=== PATIENT | male | born 1945 | race Caucasian/White ===

== ENCOUNTER 2020-05-06 07:30 | Outpatient (REF) | payer MEDICARE, MEDICAID, SELFPAY ==
[2020-05-06 10:34] LABS: Alanine Aminotransferase 19 U/L (0-40); Anion Gap 16 (12-20); Blood Urea Nitrogen 19 mg/dL (9-16); Carbon Dioxide 27 mmol/L (22-29); Chloride 102 mmol/L (96-108); Potassium 4.7 mmol/L (3.3-5.1); Sodium 140 mmol/L (135-145)
[2020-05-06 12:08] LABS: Estimated Glomerular Filt Rate 57
== END 2020-05-06 07:31 | disposition home or self-care (01) ==
LOC: HO.10HDL 07:30
PROVIDERS: Visit Provider Family Medicine
DX: I10 Essential (primary) hypertension (principal); E78.00 Pure hypercholesterolemia, unspecified; Z79.899 Other long term (current) drug therapy
CPT/HCPCS: 36415; 80051; 82550; 82565; 84460; 84520

== ENCOUNTER 2020-05-18 07:12 | Outpatient (REF) | payer MEDICARE, MEDICAID, SELFPAY ==
[2020-05-18 09:42] LABS: CDIFF Ag Negative (Negative); CDiff Toxin Negative (Negative)
[2020-05-18 09:43] LABS: CDIFF Internal ctrl Dots and bkg OK (V)
== END 2020-05-18 07:13 | disposition home or self-care (01) ==
LOC: HO.LNP 07:12
PROVIDERS: Visit Provider Family Medicine
DX: I10 Essential (primary) hypertension (principal); E78.00 Pure hypercholesterolemia, unspecified; Z79.899 Other long term (current) drug therapy
CPT/HCPCS: 87324; 87449

== ENCOUNTER 2020-12-24 08:48 | Outpatient (REF) | payer MEDICARE, MEDICAID, SELFPAY ==
[2020-12-24 10:38] LABS: Anion Gap 11 (12-20); Blood Urea Nitrogen 16 mg/dL (9-16); Carbon Dioxide 27 mmol/L (22-29); Chloride 105 mmol/L (96-108); Estimated Glomerular Filt Rate 53; Potassium 4.3 mmol/L (3.3-5.1); Sodium 139 mmol/L (135-145)
== END 2020-12-24 08:49 | disposition home or self-care (01) ==
LOC: HO.10HDL 08:48
PROVIDERS: Internal Medicine; Visit Provider Family Medicine
DX: I10 Essential (primary) hypertension (principal)
CPT/HCPCS: 36415; 80051; 82565; 84520

== ENCOUNTER → 2021-03-05 07:11 | Outpatient (REF) | payer MEDICARE, MEDICAID, SELFPAY ==
--- NOTE | 2021-03-05 07:30 | CA_ITS ---
Transthoracic Echocardiogram Patient (Last, First, Middle): Dom Holland H Gender: Male Date of : 1945 Age: 76 Procedure Date: 03/05/2021 Procedure Type: Transthoracic Echocardiogram Location: OP Height: 165.1 cm Weight: 86.18 kg BSA: 1.94 m2 Heart Rate: bpm BP: 128 / 80 mmHg Backside Grinder: Referring MD: Naveen Barney MD Symptoms: NON RHEUMATIC AROTIC VALVE STENOSIS Study Quality: Fair ECG Rhythm: Sinus Conclusions: - Normal left ventricular size and systolic function. - E/E prime ratio is between 8 and 15 consistent with indeterminate filling pressures. - Normal right ventricular cavity size and systolic function. - There is moderate thickening of the aortic valve. There is mild aortic valve stenosis. Findings Left Ventricle Normal left ventricular size and systolic function. There is moderately increased left ventricular wall thickness. The visually estimated ejection fraction is between 55-60%. Diastolic function is normal for age. Spectral Doppler is indicative of an impaired relaxation filling pattern. E/E prime ratio is between 8 and 15 consistent with indeterminate filling pressures. Right Ventricle Normal right ventricular cavity size and systolic function. Atria The left atrium is normal in size. Aortic Valve There is moderate calcification of the aortic valve. There is moderate thickening of the aortic valve. There is mild aortic valve stenosis. There is trace (trivial) aortic valve regurgitation. Mitral Valve The mitral valve appears normal. There is trace mitral valve regurgitation. There is no mitral valve stenosis. Pulmonic Valve The pulmonic valve is likely normal. Tricuspid Valve Normal tricuspid valve structure and function. There is trace tricuspid valve regurgitation. Normal right atrial pressure. There is no evidence of pulmonary hypertension. Great Vessels The pulmonary artery was not well visualized. There is mild dilatation of the ascending aorta measuring 3.80 cm. Venous The inferior vena cava is normal in size and collapses greater than 50% with inspiration. Pericardium/Pleural There is no evidence of pericardial effusion. Measurements 2D Linear Measurements IVSd: 1.42 0.6-0.9/0.6-1.0 cm LVIDd: 4.13 3.9-5.3/4.2-5.9 cm LVIDd Index: 2.13 2.4-3.2/2.2-3.1 cm/m2 LVIDs: 2.72 2.0-3.6 cm LVPWd: 1.36 0.7-1.1 cm Ao Root: 3.20 2.1-3.5 cm LA Diam: 3.40 2.7-3.8/3.0-4.0 cm LAIDs Index: 1.75 1.5-2.3 cm/m2 LV Mass: 269.87 67-162/88-224 g LV Mass Index: 139.11 43-95/49-115 g/m2 LVOT Diam: 2.30 3.0+(-)1.3 cm 2D Systolic Function EF 4C: 67.30 >55% EF 2C: 51.80 >55% EF BiP: 59.00 >55% Mitral Valve MV Pk E: 0.48 MV PK A: 0.90 MV Decel Time: 158.00 E/A: 0.50 E'Lateral: 4.57 E'Medial: 4.68 E/E' Med: 10.20 E/E' Lat: 10.40 PHT: 46.00 MVA PHT: 4.78 Decel [place]: 3.01 Aortic Valve AoV Pk Raghav: 2.33 AoV Mn Raghav: 1.58 AoV VTI: 0.51 AoV Pk Grad: 22.00 Aov Mn Grad: 12.00 S[place] Cont.VTI: 1.57 LVOT LVOT Pk Raghav: 0.85 LVOT Mn Raghav: 0.52 LVOT VTI: 0.20 LVOT Pk Grad: 3.00 LVOT Mn Grad: 1.00 LVOT Diam: 2.30 LVOT Area: 4.15 Diastolic Function MV Pk E: 0.48 MV Pk A: 0.90 E/A: 0.50 E'Medial: 4.68 E/E' Med: 10.20 E' Laterial: 4.57 E/E' Lat: 10.40 Right Ventricle TAPSE (mm): 23.00 TVS' Raghav: 15.00 Tricuspid Valve TR Pk Raghav: 2.55 TR Pk Grad: 26.00 RVSP: 29.00 Great Vessels Aorta Ao Root-2D: 3.20 2.0-3.7 cm Ao Asc: 3.80 2.1-3.4 cm Pulmonary Valve PV Pk Raghav: 0.86 Peak PV Grad: 3.00 Updated in Other Vendor System with Status of Final Ruel Iqbal MD electronically signed on 03/07/2021 9:06:04 PM with status of Final
== END ==
LOC: HO.CARD 07:11
PROVIDERS: Visit Provider Family Medicine
DX: I35.1 Nonrheumatic aortic (valve) insufficiency (principal)
CPT/HCPCS: 93306

== ENCOUNTER 2021-07-21 10:29 | Outpatient (REF) | payer MEDICARE, MEDICAID, SELFPAY ==
[2021-07-21 13:12] LABS: Anion Gap 11 (12-20); Blood Urea Nitrogen 16 mg/dL (9-16); Carbon Dioxide 29 mmol/L (22-29); Chloride 103 mmol/L (96-108); Estimated Glomerular Filt Rate 57; Sodium 138 mmol/L (135-145)
== END 2021-07-21 10:30 | disposition home or self-care (01) ==
LOC: HO.10HDL 10:29
PROVIDERS: Visit Provider Family Medicine
DX: I10 Essential (primary) hypertension (principal)
CPT/HCPCS: 36415; 80051; 82565; 84520

== ENCOUNTER 2022-02-22 08:36 | Outpatient (REF) | payer MEDICARE, MEDICAID, SELFPAY ==
[2022-02-22 09:53] LABS: Alanine Aminotransferase 22 U/L (0-40); Anion Gap 15 (12-20); Aspartate Amino Transferase 22 U/L (5-37); Blood Urea Nitrogen 15 mg/dL (9-16); Carbon Dioxide 27 mmol/L (22-29); Chloride 103 mmol/L (96-108); Estimated Glomerular Filt Rate 49; Potassium 5.1 mmol/L (3.3-5.1); Sodium 140 mmol/L (135-145)
== END 2022-02-22 08:37 | disposition home or self-care (01) ==
LOC: HO.LAB 08:36
PROVIDERS: PCP Family Medicine; Visit Provider Family Medicine
DX: I10 Essential (primary) hypertension (principal); E78.00 Pure hypercholesterolemia, unspecified; Z79.899 Other long term (current) drug therapy
CPT/HCPCS: 36415; 80051; 82550; 82565; 84450; 84460; 84520

== ENCOUNTER 2022-08-17 08:39 | Outpatient (REF) | payer MEDICARE, MEDICAID, SELFPAY ==
[2022-08-17 10:22] LABS: MANUAL DIFF FLAG NO
[2022-08-17 10:35] LABS: Basophils Percent Auto 0.5 % (0-2); Eosinophils Absolute Auto 0.4 X10*3/uL (0.0-0.4); Hemoglobin 13.8 g/dl (14.0-18.0); Imm Gran Abs Auto 0.05 X10*3/uL (0.00-0.03); Imm Gran Pct Auto 0.7 % (0.0-0.4); Lymphocytes Percent Auto 27.7 % (20-40); Mean Corpuscular HGB Conc 32.9 g/dl (31.0-36.0); Mean Corpuscular Hemoglobin 29.1 pg (27.0-33.0); Mean Corpuscular Volume 88.4 fL (80.0-98.0); Monocytes Absolute Auto 0.7 X10*3/uL (0.1-1.2); Monocytes Percent Auto 10.1 % (2-11); Neutrophils Absolute Auto 4.1 x10*3/uL (2.0-8.3); Platelet Count 335 X10*3/uL (160-400); Red Blood Count 4.75 X10*6/uL (4.60-5.80); Red Cell Distribution Width 12.2 % (11.0-16.0); White Blood Count 7.4 X10*3/uL (4.8-10.8)
[2022-08-17 11:06] LABS: Alanine Aminotransferase 22 U/L (0-40); Anion Gap 15 (12-20); Blood Urea Nitrogen 15 mg/dL (9-16); Carbon Dioxide 25 mmol/L (22-29); Chloride 106 mmol/L (96-108); Estimated Glomerular Filt Rate 54; Potassium 4.8 mmol/L (3.3-5.1); Sodium 141 mmol/L (135-145)
[2022-08-17 11:26] LABS: Erythrocyte Sedimentation Rate 18 MM/HR (0-15)
== END 2022-08-17 08:40 | disposition home or self-care (01) ==
LOC: HO.10HDLR 08:39
PROVIDERS: Visit Provider Family Medicine
DX: I10 Essential (primary) hypertension (principal); E78.00 Pure hypercholesterolemia, unspecified; L30.9 Dermatitis, unspecified; Z79.899 Other long term (current) drug therapy
CPT/HCPCS: 36415; 80051; 82550; 82565; 84460; 84520; 85025; 85652

== ENCOUNTER 2022-09-06 10:46 | Outpatient (REF) | payer MEDICARE, MEDICAID, SELFPAY ==
[2022-09-06 11:54] LABS: COVID-19 Test Invalid (Negative); IDNOW Serial# 9DB6401D
== END 2022-09-06 10:47 | disposition home or self-care (01) ==
LOC: HO.LAB 10:46
PROVIDERS: PCP Family Medicine; Visit Provider Family Medicine
DX: Z20.822 Contact with and (suspected) exposure to COVID-19 (principal); R51.9 Headache, unspecified; R05.9 Cough, unspecified; B34.9 Viral infection, unspecified
CPT/HCPCS: 87635

== ENCOUNTER → 2022-09-08 12:31 | Outpatient (REF) | payer MEDICARE, MEDICAID, SELFPAY ==
--- NOTE | 2022-09-08 13:00 | CA_ITS ---
Transthoracic Echocardiogram Patient (Last, First, Middle): Dom Holland H Gender: Male Date of : 1945 Age: 77 Procedure Date: 09/08/2022 Procedure Type: Transthoracic Echocardiogram Location: OP Height: 170.18 cm Weight: 90.72 kg BSA: 2.02 m2 Heart Rate: bpm BP: 125 / 80 mmHg Birdcage Assembler: ARIANNE Referring MD: Naveen Barney MD Potato Pancake Frier: Jeyson Tejeda MD Symptoms: I49.91 Unspecified AFIB, I35.0 Nonrheumatic aortic valve stenosis Study Quality: Technically Difficult ECG Rhythm: Atrial Fibrillation with rapid ventricular respons Conclusions: - 1. Technically difficult study due to off axis views as well as rapid atrial fibrillation 2. Low normal LV systolic function with LVEF of 50-55% 3. Mild aortic stenosis 4. Normal RV systolic pressure 5. Mildly dilated ascending aorta at 4.2 cm 6. No gross pericardial effusion Findings Left Ventricle The left ventricle was not well visualized. Normal left ventricular cavity size. There is mildly increased left ventricular wall thickness. The left ventricular systolic function is low normal. The visually estimated ejection fraction is between 50-55%. Diastolic function is indeterminate on the basis of available data. There is moderate septal asymmetric hypertrophy. Right Ventricle Normal right ventricular cavity size. There is mild to moderately decreased right ventricular systolic function. Atria The left atrium is normal in size. Interatrial shunt cannot be excluded. The right atrium was not well visualized. Aortic Valve There is moderate calcification of the aortic valve. There is moderate thickening of the aortic valve. There is mild aortic valve stenosis. The peak aortic gradient is 20 mmHg.The mean gradient is 12 mmHg. The aortic valve area is 1.63 cm2. There is no aortic valve regurgitation. Mitral Valve The mitral valve was not well visualized. There is no mitral valve regurgitation. There is no mitral valve stenosis. Pulmonic Valve The pulmonic valve was not well visualized. Tricuspid Valve The tricuspid valve was not well visualized. There is mild tricuspid valve regurgitation. Tricuspid regurgitation envelope is inadequate for calculation of right ventricular systolic pressure. Normal right atrial pressure. There is no evidence of pulmonary hypertension. Great Vessels The pulmonary artery was not well visualized. There is mild dilatation of the ascending aorta measuring 4.20 cm. Venous The inferior vena cava is normal in size and collapses greater than 50% with inspiration. Pericardium/Pleural There is no evidence of pericardial effusion. Prior Study Comparison No significant change compared to prior study dated: 03/05/2021. Measurements 2D Linear Measurements IVSd: 1.85 0.6-0.9/0.6-1.0 cm LVIDd: 4.10 3.9-5.3/4.2-5.9 cm LVIDd Index: 2.03 2.4-3.2/2.2-3.1 cm/m2 LVIDs: 2.68 2.0-3.6 cm LVPWd: 1.32 0.7-1.1 cm LA Diam: 3.10 2.7-3.8/3.0-4.0 cm LAIDs Index: 1.53 1.5-2.3 cm/m2 LV Mass: 327.93 67-162/88-224 g LV Mass Index: 162.34 43-95/49-115 g/m2 LVOT Diam: 2.20 3.0+(-)1.3 cm Mitral Valve MV Pk E: 0.75 MV Decel Time: 132.00 E'Lateral: 6.09 E'Medial: 8.81 E/E' Med: 8.60 E/E' Lat: 12.40 PHT: 39.00 MVA PHT: 5.64 Decel Carbon: 5.92 Aortic Valve AoV Pk Raghav: 2.21 AoV Mn Raghav: 1.59 AoV VTI: 0.37 AoV Pk Grad: 20.00 Aov Mn Grad: 12.00 [place] Cont.VTI: 1.63 LVOT LVOT Pk Raghav: 0.94 LVOT Mn Raghav: 0.63 LVOT VTI: 0.16 LVOT Pk Grad: 4.00 LVOT Mn Grad: 2.00 LVOT Diam: 2.20 LVOT Area: 3.80 Diastolic Function MV Pk E: 0.75 E'Medial: 8.81 E/E' Med: 8.60 E' Laterial: 6.09 E/E' Lat: 12.40 Right Ventricle TAPSE (mm): 13.10 TVS' Raghav: 10.80 Tricuspid Valve TR Pk Raghav: 2.29 TR Pk Grad: 21.00 RA Press: 3.00 RVSP: 24.00 Great Vessels Aorta Sinus of Valsalva: 3.70 2.0-3.5 cm Ao Asc: 4.20 2.1-3.4 cm Pulmonary Valve PV Pk Raghav: 1.09 Peak PV Grad: 5.00 Updated in Other Vendor System with Status of Final Jeyson Tejeda MD electronically signed on 09/08/2022 3:47:20 PM with status of Final
== END ==
LOC: HO.CARD 12:31
PROVIDERS: PCP Family Medicine; Visit Provider Family Medicine
DX: I48.91 Unspecified atrial fibrillation (principal); I35.0 Nonrheumatic aortic (valve) stenosis
CPT/HCPCS: 93306

== ENCOUNTER 2022-10-18 11:21 | Outpatient (REF) | payer MEDICARE, MEDICAID, SELFPAY ==
[2022-10-18 14:15] LABS: Thyroid Stimulating Hormone 1.12 uIU/mL (0.32-4.0)
== END 2022-10-18 11:22 | disposition home or self-care (01) ==
LOC: HO.10HDL 11:21
PROVIDERS: Visit Provider Family Medicine
DX: I48.91 Unspecified atrial fibrillation (principal); I35.0 Nonrheumatic aortic (valve) stenosis; I10 Essential (primary) hypertension; I77.810 Thoracic aortic ectasia
CPT/HCPCS: 36415; 84439; 84443; 93005; 99202

== ENCOUNTER 2022-10-18 14:38 | Outpatient (AMB) | payer MEDICARE, MEDICAID, SELFPAY ==
--- NOTE | 2022-10-18 14:55 | A.OFFVIS_ITS ---
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 A recent EKG had shown atrial fibrillation hence he has been referred here. Patient himself does not have any clear-cut cardiac symptoms. No angina or shortness of breath or in fact anything cardiac sounding. He also denies any prior history of coronary disease myocardial infarction or anything along those lines. He has hypertension on medications. Also on statins. Overall, seems to be getting along fine. [facility] Medical History (Updated 10/18/22 @ 15:32 by Juan Carlos Coats MD) Ascending aorta dilatation Essential hypertension Nonrheumatic aortic (valve) stenosis Family History (Updated 10/18/22 @ 15:05 by Bethany Wing) Father Heart attack Social History (Updated 10/18/22 @ 15:06 by Bethany Wing) Alcohol intake: current Alcohol intake frequency: holidays/special occasions only Alcohol type: wine Patient Tobacco Use Status: Never used Tobacco Review of Systems Const Denies chills, Denies daytime sleepiness, Denies fatigue, Denies fever(s), Denies frequent falls, Denies night sweats, Denies snoring, Denies weakness, Denies weight gain and Denies weight loss Eyes Denies loss of vision ENT Denies dizziness and Denies hearing loss Card Denies chest pain, Denies chest pain with activity, Denies syncope, Denies rapid heart rate, Denies edema, Denies claudication, Denies leg edema, Denies lightheadedness, Denies palpitations, Denies dyspnea, Denies dyspnea on exertion and Denies orthopnea Resp Denies cough, Denies excessive phlegm production, Denies dyspnea, Denies dyspnea on exertion, Denies snoring and Denies wheezing GI Denies abdominal pain, Denies hematochezia, Denies change in bowel habits, Denies change in stool character, Denies heartburn, Denies nausea and Denies vomiting Denies hematuria, Denies dysuria and Denies urinary frequency Musc Denies arthralgias, Denies muscle weakness, Denies numbness and Denies tingling Skin/Breast Denies nail changes and Denies rash Neuro Denies Abnormal speech present, Denies dizziness, Denies syncope, Denies frequent falls, Denies loss of vision, Denies memory loss, Denies numbness, Denies tingling and Denies weakness Psych Denies depression and Denies memory loss Endo Denies fatigue and Denies palpitations Aller/Immun Denies wheezing Physical Exam Vital Signs: Last Vital Signs Pulse 88 10/18/22 15:00 BP 148/94 H 10/18/22 15:00 BMI result Body Mass Index 32.2 Const General: comfortable and no acute distress Orientation/consciousness: patient oriented x3 HEENT Other: Unremarkable Head: Yes normal to inspection Neck Neck: Yes normal visual inspection Chest Chest palpation & inspection: normal inspection of the chest Resp Auscultation: clear to auscultation bilaterally Cardio Palpation: normal PMI Heart sounds: S1 normal heart sound present, S2 normal heart sound present, no gallops, Murmur heart sound present systolic II/ and at the right sternal border and no rubs GI Palpation (GI): Soft to palpation Back/Spine/Pelvis Other: unremarkable Skin General skin exam: no rashes or lesions noted Neuro General: patient oriented x3 Speech: No Abnormal speech present Extrem General: Yes normal to inspection Psych Mental Status: mental status grossly normal Office Procedures EKG Details: EKG with atrial fibrillation at 88/Min; nonspecific ST-T changes. [id number], Complete Assessment & Plan Assessment & Plan (1) New onset atrial fibrillation: Code(s): I48.91 - Unspecified atrial fibrillation Plan: Continue beta-blockers. Continue anticoagulation. Check Holter. (2) Nonrheumatic aortic (valve) stenosis: Code(s): I35.0 - Nonrheumatic aortic (valve) stenosis Plan: In the recent echocardiogram, mean gradient across aortic valve was 12 mm Hg. Peak 20 mm Hg. Aortic valve area is 1.6 sq cm. We can monitor this periodically. (3) Essential hypertension: Code(s): I10 - Essential (primary) hypertension Plan: Slightly high. On beta-blockers/lisinopril. To be followed. May need more medications. (4) Ascending aorta dilatation: Code(s): I77.810 - Thoracic aortic ectasia Plan: Ascending aortic size 4.2 cm. Follow-up in 1 year with another echocardiogram. Plan Discussed with who came for appointment. Orders: Orders ECG 3 day holter monitor Today I48.91 - Unspecified atrial fibrillation, R00.2 - Palpitations Coding Level of Care Code New Pt Level 4 (92385) Diagnoses New onset atrial fibrillation I48.91 Nonrheumatic aortic (valve) stenosis I35.0 Essential hypertension I10 Ascending aorta dilatation I77.810 CPT Codes EKG - CPT: 64308-[id number], Complete ([id number])
[2022-10-18 15:00] VITALS: BP 148/94; PULSE 88; BMI 32.2
== END 2022-10-18 15:26 | disposition home or self-care (01) ==
PROVIDERS: PCP Family Medicine; Visit Provider Internal Medicine
DX: I48.91 Unspecified atrial fibrillation (principal); I35.0 Nonrheumatic aortic (valve) stenosis; I10 Essential (primary) hypertension; I77.810 Thoracic aortic ectasia
CPT/HCPCS: 93010; 99204

== ENCOUNTER → 2022-10-25 09:57 | Outpatient (REF) | payer MEDICARE, MEDICAID, SELFPAY ==
--- NOTE | 2022-10-25 09:59 | HM_ITS ---
Conclusion: 1. Patient was monitored for total period of 3 days 2. Baseline was atrial fibrillation with average heart of 92 beats per minute with borderline rate control 3. No significant pauses noted 4. Occasional PVCs noted 5. No patient reported events MTDD
== END ==
LOC: HO.CARD 09:57
PROVIDERS: Visit Provider Internal Medicine
DX: I48.91 Unspecified atrial fibrillation (principal); R00.2 Palpitations
CPT/HCPCS: 93242

== ENCOUNTER → 2022-10-25 09:59 | Outpatient (BNV) | payer MEDICARE, MEDICAID, SELFPAY | PROVIDERS: Visit Provider Internal Medicine Cardiovascular Disease | DX: I48.91 Unspecified atrial fibrillation (principal) | CPT/HCPCS: 93244 ==

== ENCOUNTER 2023-01-18 13:39 | Outpatient (AMB) | payer MEDICARE, MEDICAID, SELFPAY ==
[2023-01-18 13:55] VITALS: BP 130/72; PULSE 75; BMI 32.7
--- NOTE | 2023-01-18 13:55 | MHC.OFFVIS ---
Intake Vital Signs 01/18/23 13:55 Height 5 ft 7 in Weight 208 lb 15.971 oz BMI 32.7 BP 130/72 Blood Pressure Location Rt brachial Position Sitting Pulse 75 Pulse Source Pulse Oximeter Intake Visit Reasons: 2-3 mth f/up Allergies No Known Allergies [No Known Allergies*] Allergy (Verified 01/18/23 13:55) Medication List - Last Reconciled 01/18/23 by Tiarra Melo NP coenzyme Q10 100 mg PO DAILY lisinopril 20 mg PO DAILY metoprolol succinate ER 100 mg PO DAILY rivaroxaban (Xarelto) 20 mg PO DAILY simvastatin 40 mg PO DAILY trazodone 25 mg PO BEDTIME PRN HPI HPI Comments History of Present Illness Details 77-year-old male presents for a follow-up after testing. He reports doing increasingly better. Denies any chest discomfort, palpations, shortness of breath, and swelling. 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 Holter showed afib with slightly fast rates. His metoprolol succinate ER was increased from 50mg to 100mg. Reports his blood pressures are about 130 systolic at home. [facility] Medical History (Updated 01/18/23 @ 14:03 by Tiarra Melo NP) Ascending aorta dilatation Essential hypertension Nonrheumatic aortic (valve) stenosis Family History (Updated 10/18/22 @ 15:05 by Bethany Wing) Father Heart attack Social History Alcohol intake: current Alcohol intake frequency: holidays/special occasions only Alcohol type: wine Patient Tobacco Use Status: Never used Tobacco Review of Systems Const Denies chills, Denies fatigue, Denies fever(s), Denies frequent falls, Denies weakness, Denies weight gain and Denies weight loss ENT Denies dizziness Card Denies chest pain, Denies chest pain with activity, Denies syncope, Denies rapid heart rate, Denies pedal edema, Denies irregular heart rhythm, Denies leg edema, Denies lightheadedness, Denies palpitations, Denies dyspnea, Denies dyspnea on exertion, Denies orthopnea and Denies other (LOC) Resp Denies cough, Denies dyspnea and Denies dyspnea on exertion GI Denies hematochezia and Denies change in bowel habits Musc Denies abnormal gait, Denies arthralgias, Denies muscle weakness, Denies numbness, Denies radiating pain into limb and Denies tingling Neuro Denies abnormal gait, Denies dizziness, Denies syncope, Denies frequent falls, Denies numbness, Denies tingling and Denies weakness Endo Denies fatigue and Denies palpitations Physical Exam Const General: healthy appearing and no acute distress Orientation/consciousness: patient oriented x3 HEENT Head: Yes normal to inspection Eyes General: appearance normal, both eyes and all related structures Neck Neck: Yes normal visual inspection Chest Chest palpation & inspection: normal inspection of the chest Resp Effort & Inspection: normal respiratory effort Auscultation: clear to auscultation bilaterally Cardio Jugular venous distension: no JVD Palpation: normal PMI Rate: regular rate Rhythm: regular rhythm Heart sounds: S1 normal heart sound present, S2 normal heart sound present, no click, no gallops, no murmurs and no rubs GI Inspection: Yes normal to inspection Palpation (GI): Soft to palpation Skin General skin exam: no rashes or lesions noted Neuro General: patient oriented x3 Extrem General: Yes normal to inspection Psych Appearance: grossly normal Assessment & Plan Assessment & Plan (1) Atrial fibrillation: Code(s): I48.91 - Unspecified atrial fibrillation (2) Essential hypertension: Code(s): I10 - Essential (primary) hypertension Plan Report any new symptoms of chest discomfort, heart racing, palpiations, shortness of breath, or syncope. Continue all medications as prescribed. Avoiding salt and monitor blood pressures at home. Target blood pressures below 130/80. Will have him return in [address] Coats or sooner if needed. Coding Level of Care Code Est Pt Level 3 (60373) Diagnoses Atrial fibrillation I48.91 Essential hypertension I10
== END 2023-01-18 14:37 | disposition home or self-care (01) ==
PROVIDERS: PCP Family Medicine; Visit Provider Nurse Practitioner
DX: I48.91 Unspecified atrial fibrillation (principal); I10 Essential (primary) hypertension
CPT/HCPCS: 99213

== ENCOUNTER → 2023-01-18 13:39 | Outpatient (BNVA) | payer MEDICARE, MEDICAID, SELFPAY | PROVIDERS: PCP Family Medicine; Visit Provider Nurse Practitioner | DX: I48.91 Unspecified atrial fibrillation (principal); I10 Essential (primary) hypertension | CPT/HCPCS: 99212 ==

== ENCOUNTER 2023-02-07 08:18 | Outpatient (REF) | payer MEDICARE, MEDICAID, SELFPAY ==
[2023-02-07 10:22] LABS: MANUAL DIFF FLAG NO
[2023-02-07 10:32] LABS: Basophils Absolute Auto 0.1 X10*3/uL (0.0-0.2); Basophils Percent Auto 0.7 % (0-2); Eosinophils Absolute Auto 0.3 X10*3/uL (0.0-0.4); Eosinophils Percent Auto 3.4 % (0-4); Hematocrit 45.3 % (42.0-52.0); Hemoglobin 14.9 g/dl (14.0-18.0); Imm Gran Abs Auto 0.05 X10*3/uL (0.00-0.03); Imm Gran Pct Auto 0.6 % (0.0-0.4); Lymphocytes Absolute Auto 1.9 X10*3/uL (1.2-4.9); Lymphocytes Percent Auto 22.4 % (20-40); Mean Corpuscular HGB Conc 32.9 g/dl (31.0-36.0); Mean Corpuscular Hemoglobin 29.4 pg (27.0-33.0); Mean Corpuscular Volume 89.5 fL (80.0-98.0); Mean Platelet Volume 9.9 fL (9.4-12.4); Monocytes Absolute Auto 0.7 X10*3/uL (0.1-1.2); Monocytes Percent Auto 8.1 % (2-11); Neutrophils Absolute Auto 5.5 x10*3/uL (2.0-8.3); Neutrophils Percent Auto 64.8 % (45-73); Platelet Count 368 X10*3/uL (160-400); Red Blood Count 5.06 X10*6/uL (4.60-5.80); Red Cell Distribution Width 12.4 % (11.0-16.0); White Blood Count 8.5 X10*3/uL (4.8-10.8)
[2023-02-07 10:37] LABS: Anion Gap 13 (12-20); Blood Urea Nitrogen 14 mg/dL (9-16); Carbon Dioxide 27 mmol/L (22-29); Chloride 106 mmol/L (96-108); Estimated Glomerular Filt Rate 48; Potassium 4.6 mmol/L (3.3-5.1); Sodium 141 mmol/L (135-145)
== END 2023-02-07 08:19 | disposition home or self-care (01) ==
LOC: HO.10HDL 08:18
PROVIDERS: Visit Provider Family Medicine
DX: I10 Essential (primary) hypertension (principal); Z79.899 Other long term (current) drug therapy
CPT/HCPCS: 36415; 80051; 82565; 84520; 85025

== ENCOUNTER 2023-07-12 06:21 | Outpatient (REF) | payer MEDICARE, SELFPAY ==
[2023-07-12 08:14] LABS: Alanine Aminotransferase 19 U/L (0-40); Anion Gap 11 (12-20); Aspartate Amino Transferase 23 U/L (5-37); Blood Urea Nitrogen 17 mg/dL (9-16); Carbon Dioxide 28 mmol/L (22-29); Chloride 106 mmol/L (96-108); Cholesterol 242 mg/dL (<200); Estimated Glomerular Filt Rate 50; Glucose Fasting 121 mg/dL (60-99); HDL Cholesterol 39 mg/dL (>40); LDL Cholesterol Calculated 172 mg/dL (<100); Potassium 4.4 mmol/L (3.3-5.1); Sodium 141 mmol/L (135-145); Triglycerides 155 mg/dL (<150)
== END 2023-07-12 06:22 | disposition home or self-care (01) ==
LOC: HO.LAB 06:21
PROVIDERS: PCP Family Medicine; Visit Provider Family Medicine
DX: I10 Essential (primary) hypertension (principal); E78.00 Pure hypercholesterolemia, unspecified; R73.9 Hyperglycemia, unspecified; Z79.899 Other long term (current) drug therapy
CPT/HCPCS: 36415; 80051; 80061; 82550; 82565; 82947; 84450; 84460; 84520

== ENCOUNTER 2023-09-04 09:40 | Outpatient (REF) | payer MEDICARE, MEDICAID, SELFPAY ==
[2023-09-04 10:46] LABS: Estimated Average Glucose 128 mg/dL; Hemoglobin A1c % 6.1 % (<6.0)
[2023-09-04 11:02] LABS: Glucose Fasting 103 mg/dL (60-99)
[2023-09-04 11:11] LABS: Free T4 (Free Thyroxine) 0.99 ng/dL (0.71-1.85)
== END 2023-09-04 09:41 | disposition home or self-care (01) ==
LOC: HO.LAB 09:40
PROVIDERS: PCP Family Medicine; Visit Provider Family Medicine
DX: E78.00 Pure hypercholesterolemia, unspecified (principal); R00.0 Tachycardia, unspecified; R73.9 Hyperglycemia, unspecified
CPT/HCPCS: 36415; 82947; 83036; 84439

== ENCOUNTER 2023-10-17 16:49 | Inpatient (IN) | payer MEDICARE, MEDICAID, SELFPAY ==
[2023-10-17] VITALS (8 sets, daily range): BP systolic 131–172; BP diastolic 64–128; PULSE 74–141; RESP 16–42; TEMP 36.2–37.2; O2SAT 86–143; BMI 30.5
--- NOTE | ~2023-10-17 | XR_ITS ---
EXAMINATION: XR CHEST CLINICAL INFORMATION: Shortness of breath, possible edema COMPARISON: 07/19/2016 TECHNIQUE: Frontal view of the chest was obtained. FINDINGS: Heart is enlarged. Increased interstitial thickening throughout the bilateral lung parenchymal. Increased perihilar and bibasilar groundglass opacities. Small bilateral pleural effusions present. XR/XR chest 1V IMPRESSION: Cardiomegaly with increased interstitial thickening and groundglass opacities. Small bilateral pleural effusions. Findings consistent with pulmonary edema.
--- NOTE | 2023-10-17 16:54 | ECG_ITS ---
Test Reason : SOB Blood Pressure : / mmHG Vent. Rate : 126 BPM Atrial Rate : 000 BPM P-R Int : 000 ms QRS Dur : 066 ms QT Int : 296 ms P-R-T Axes : 000 023 109 degrees QTc Int : 428 ms Atrial fibrillation with rapid ventricular response Septal infarct , age undetermined Nonspecific ST and T wave abnormality Abnormal ECG No previous ECGs available Referred By: Sveta Thomas Electronically Signed By:LULY STRAUSS
--- NOTE | 2023-10-17 16:55 | ED_ITS ---
HPI - SOB/Dyspnea General Chief Complaint: Dyspnea Stated Complaint: Difficulty breathing Time Seen by Provider: 10/17/23 17:05 Source: patient and family Mode of arrival: ambulatory Limitations: no limitations History of Present Illness ED Provider: Dr. Sandy Servin HPI Narrative: To the emergency room complaining of shortness of breath for 12 days in lower extremity edema. Patient states that when he walks, he becomes very short of breath. 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 Patient states that he has atrial fibrillation, he takes Xarelto and metoprolol and he is compliant with his medications. Patient denies any chest pain. Denies syncopal episodes. Related Data Home Medications ?Medication ?Instructions ?Recorded ?Confirmed coenzyme Q10 100 mg capsule 100 mg PO DAILY 10/18/22 01/18/23 lisinopril 20 mg tablet 20 mg PO DAILY 10/18/22 01/18/23 rivaroxaban 20 mg tablet (Xarelto) 20 mg PO DAILY 10/18/22 01/18/23 trazodone 50 mg tablet 25 mg PO BEDTIME PRN 10/18/22 01/18/23 simvastatin 40 mg tablet 40 mg PO DAILY 01/18/23 01/18/23 Previous Rx's ?Medication ?Instructions ?Recorded metoprolol succinate 100 mg 100 mg PO DAILY #90 tabs 08/28/23 tablet,extended release 24 hr Allergies Allergy/AdvReac Type Severity Reaction Status Date / Time No Known Allergies Allergy Verified 10/17/23 16:55 [No Known Allergies*] Review of Systems 2 Review of Systems: Constitutional : No Weight loss, No Fever, No Chills, No Night Sweats, No Fatigue, No Malaise ENT/Mouth : No Hearing loss, No Ear Pain, No Nasal Congestion, No Sinus Pain, No Hoarseness, No sore throat, No Rhinorrhea, No Swallowing Difficulty Eyes: No Eye Pain, No Swelling, No Redness, No Foreign Body, No Discharge, No Vision Changes Cardiovascular : Denies chest pain, complaining of orthopnea, shortness of breath with exertion and lower extremity edema Respiratory : No Cough, No Sputum, No Wheezing, No Smoke Exposure, complaining of dyspnea, worse with exertion Gastrointestinal : No Nausea, No Vomiting, No Diarrhea, No Constipation, No abdominal Pain, No Hematochezia, No Melena Genitourinary : no irregular bleeding, No Dysuria, No Urinary Frequency, No Hematuria, No Urinary Incontinence, No Urgency, No Flank Pain, No Urinary Flow Changes, No Hesitancy Musculoskeletal : No joint pain, No Myalgias, No Joint Swelling Skin : No Skin Lesions, No rash Neuro : No Weakness, No Numbness, No Paresthesias, No Loss of Consciousness, No Dizziness, No Headache Psych : No Anxiety/Panic, No Depression, No SI/HI/AH/VH, No Social Issues, Heme/Lymph: No Bruising, No Bleeding,No Lymphadenopathy Endocrine : No Polyuria, No Polydipsia, No Temperature Intolerance [facility] Past Medical History Medical History Ascending aorta dilatation Essential hypertension Nonrheumatic aortic (valve) stenosis Family History Family History (Updated 10/18/22 @ 15:05 by Bethany Wing) Father Heart attack Social History Social History Alcohol intake: current Alcohol intake frequency: holidays/special occasions only Alcohol type: wine Patient Tobacco Use Status: Never used Tobacco Smoked in Last 30 Days: No Use of substances other than those prescribed or required for medical reasons: No Advance Directives: No Advance Directives Information Provided: No Do you have a plan to hurt others: No Plan Physical Exam 2 Vital Signs: Vital Signs: Last Vital Signs Temp 99 F 10/17/23 18:19 Pulse 74 10/17/23 18:19 Resp 16 10/17/23 18:19 BP 131/64 10/17/23 18:19 Pulse Ox 95 10/17/23 18:19 O2 Del Method Room Air 10/17/23 18:19 BMI result Body Mass Index 30.5 Const: Other: Appearance: Alert. Oriented X3. No acute distress. Eyes: Pupils equal, round and reactive to light. ENT: Pharynx normal. Neck: Normal inspection. Neck supple. No lymph nodes noted. No crepitus CVS: Normal heart rate and rhythm. Pulses normal. Normal S1 and S2 Respiratory: Seems short of breath, bilateral crackles, no rales, no long wheezing, patient has upper airway wheezing but not present when he talks Abdomen: Soft and nontender. No rigidity. No distention. Skin: Skin warm and dry. Normal skin color. Normal skin turgor. Extremities: +2 pitting edema in bilateral lower extremities,. No Lacerations. No Rash Neuro: Oriented X 3. No motor deficit. No sensory deficit. Moving all extremities. No slurred speech. CN 2 through 12 grossly intact Psych: calm, cooperative, normal affect Course Course Course Narrative: This is a Rapid Medical Exam performed in triage by Sveta Thomas PA-C. Full HPI, ROS and PE to be performed by primary ED provider. 78 year-old M w/ PMHx AFib on Xarelto, AV stenosis, presenting to the ED c/o worsening shortness breath x 14 days w/some wheezing and pedal edema. Denies chest pain PE:+ bilateral LE pitting edema, tachycardic in triage > suspect AFib with RVR, will be brought back immediately to main ED Plan: EKG, labs, CXR, viral testing Medications Administered Discontinued Medications Generic Name Dose Route Start Last Admin Trade Name Freq PRN Reason Stop Dose Admin Digoxin 0.25 mg 10/17/23 18:19 10/17/23 18:31 Digoxin 0.5 Mg/2 Ml Ampul IVPUSH 10/17/23 18:20 0.25 mg ONCE ONE Administration Furosemide 60 mg 10/17/23 17:16 10/17/23 17:24 Furosemide 100 Mg/10 Ml Vial IVPUSH 10/17/23 17:17 60 mg ONCE ONE Administration Protocol Metoprolol Tartrate 5 mg 10/17/23 17:16 10/17/23 17:24 Metoprolol Tartrate 5 Mg/5 Ml Vial IVPUSH 10/17/23 17:17 5 mg ONCE ONE Administration Protocol Medical Decision Making Medical Decision Making [facility] Narrative: -when patient walked from triage to his ED room, oxygen saturation dropped to 86%. Patient is not oxygen dependent. This time, on 3 L saturating 94% -interpretation of EKG: Atrial fibrillation with RVR, heart rate 126, ST segment depression or elevation, no T-wave inversion, QTC 428 -my interpretation of chest x-ray: Mild to moderate pulmonary edema, cardiomegaly -patient receiving Lasix 60 mg and metoprolol IV 5 mg -all of patient's labs and imaging pending, discussed with the patient that once the initial workup is done, he will be admitted, patient and his agree with plan -my interpretation of labs: Normal hematology, chemistry show no significant electrolyte abnormalities, troponin is negative, BNP is elevated 1537, patient does not have previous history of CHF -patient's heart rate slightly improved with metoprolol IV 5 mg, patient was given 0.25 mg of IV digoxin -patient's vitals heart rate 74, blood pressure 131 /64, respirations 16, oxygen saturation 95% on room air -I discussed the patient with SANDI Fuchs, on the medicine team, patient being admitted Differential Diagnosis Differential Diagnoses: The differential diagnosis associated with the presentation includes (CHF, viral illness) Admission/Observation Consideration of admission/observation: Escalation of care including admission/observation considered Lab Data 10/17/23 17:10 10/17/23 17:53 Labs: Lab Results 10/17/23 10/17/23 Range/Units 17:10 17:53 WBC 9.5 (4.8-10.8) X10*3/uL RBC 5.21 (4.60-5.80) X10*6/uL Hgb 15.7 (14.0-18.0) g/dl Hct 47.4 (42.0-52.0) % MCV 91.0 (80.0-98.0) fL MCH 30.1 (27.0-33.0) pg MCHC 33.1 (31.0-36.0) g/dl RDW 14.0 (11.0-16.0) % Plt Count 280 (160-400) X10*3/uL MPV 10.8 (9.4-12.4) fL Immature Gran % (Auto) 0.3 (0.0-0.4) % Neut % (Auto) 59.7 (45-73) % Lymph % (Auto) 26.2 (20-40) % [place] % (Auto) 10.7 (2-11) % Eos % (Auto) 2.6 (0-4) % Baso % (Auto) 0.5 (0-2) % Lymph # (Auto) 2.5 (1.2-4.9) X10*3/uL [place] # (Auto) 1.0 (0.1-1.2) X10*3/uL Eos # (Auto) 0.3 (0.0-0.4) X10*3/uL Baso # (Auto) 0.1 (0.0-0.2) X10*3/uL Abs Immat Gran (auto) 0.03 (0.00-0.03) X10*3/uL Absolute Neuts (auto) 5.7 (2.0-8.3) x10*3/uL Absolute Nucleated RBC 0.000 (0.0-0.012) X10*3/uL Nucleated RBC % (auto) 0.0 (0.0-0.2) /100WBC PT 16.8 H (11.1-13.3) SEC INR 1.4 H (0.9-1.1) Sodium 142 (135-145) mmol/L Potassium 4.2 (3.3-5.1) mmol/L Chloride 108 (96-108) mmol/L Carbon Dioxide 22 (22-29) mmol/L Anion Gap 16 (12-20) BUN 25 H (9-16) mg/dL Creatinine 1.38 (0.5-1.4) mg/dL Estim Creat Clear Calc 46.0 Estimated GFR 50 Random Glucose 128 H (60-115) mg/dL Calcium 9.6 (8.4-10.2) mg/dL Magnesium 2.3 (1.6-2.6) mg/dL Total Bilirubin 1.2 H (0.0-1.0) mg/dL Direct Bilirubin 0.5 (0.0-0.5) mg/dL AST 40 H (5-37) U/L ALT 44 H (0-40) U/L Alkaline Phosphatase 88 (39-117) U/L Troponin I High Sens 18.0 (<3.5-35.0) ng/L B-Natriuretic Peptide 1547 H (<100) pg/mL Total Protein 7.5 (6.5-8.0) g/dL Albumin 4.1 (3.5-5.0) g/dL Influenza Type A (PCR) NEGATIVE (Negative) Influenza Type B (PCR) NEGATIVE (Negative) RSV RNA Qual (PCR) NEGATIVE (Negative) SARS-CoV-2 RNA (RT-PCR) NEGATIVE (Negative) Independent Interpretation I performed an independent interpretation of an: Plain X-Ray Radiology Impression Discussion of test interpretation with radiology: I have reviewed the radiologist's reading. Radiologist Impression: Heart is enlarged. Increased interstitial thickening throughout the bilateral lung parenchymal. Increased perihilar and bibasilar groundglass opacities. Small bilateral pleural effusions present. XR/XR chest 1V IMPRESSION: Cardiomegaly with increased interstitial thickening and groundglass opacities. Small bilateral pleural effusions. Findings consistent with pulmonary edema. Critical Care Time Critical Care Time Critical Care Time: Yes Total Critical Care Time: 75 Attestation: I have personally provided critical care time. Time includes review of lab data, radiology results, discussion with consultants, and monitoring for potential decompensation. Intervention performed as documented. Discharge Plan Discharge Clinical Impression: Atrial fibrillation with RVR, CHF (congestive heart failure) Patient Disposition: Admitted As Inpatient Print Language: [place]se
[2023-10-17 17:16] LABS: MANUAL DIFF FLAG NO
[2023-10-17] MEDS: Metoprolol Tartrate 5 MG/5 ML VIAL IVPUSH (17:24)
[2023-10-17] MEDS: Furosemide 100 MG/10 ML VIAL 60 MG IVPUSH (17:24)
[2023-10-17 17:39] LABS: B Type Natriuretic Peptide 1547 pg/mL (<100)
[2023-10-17 17:40] LABS: Basophils Absolute Auto 0.1 X10*3/uL (0.0-0.2); Basophils Percent Auto 0.5 % (0-2); Eosinophils Absolute Auto 0.3 X10*3/uL (0.0-0.4); Eosinophils Percent Auto 2.6 % (0-4); Hematocrit 47.4 % (42.0-52.0); Hemoglobin 15.7 g/dl (14.0-18.0); Imm Gran Abs Auto 0.03 X10*3/uL (0.00-0.03); Imm Gran Pct Auto 0.3 % (0.0-0.4); Lymphocytes Absolute Auto 2.5 X10*3/uL (1.2-4.9); Lymphocytes Percent Auto 26.2 % (20-40); Mean Corpuscular HGB Conc 33.1 g/dl (31.0-36.0); Mean Corpuscular Hemoglobin 30.1 pg (27.0-33.0); Mean Platelet Volume 10.8 fL (9.4-12.4); Monocytes Percent Auto 10.7 % (2-11); Neutrophils Absolute Auto 5.7 x10*3/uL (2.0-8.3); Neutrophils Percent Auto 59.7 % (45-73); Platelet Count 280 X10*3/uL (160-400); Red Blood Count 5.21 X10*6/uL (4.60-5.80); White Blood Count 9.5 X10*3/uL (4.8-10.8)
[2023-10-17 17:46] LABS: INTERNATIONAL NORM RATIO 1.4 (0.9-1.1); Prothrombin Time 16.8 SEC (11.1-13.3)
--- NOTE | 2023-10-17 17:51 | PC.NURSE ---
patient arrives via external triage, patient complaining of shortness of breath for the last 10 days patient tachypneic in the 30s-40s, upon getting patient up and into stretcher, noted to be saturating at 86% on room air, placed on 3L nasal cannula with good effect, patient now saturating at 93%, placed on monitor and noted to be in an afib rhythm with rapid ventricular response in the 140s, 20g PIV placed in right wrist, blood work drawn and sent to lab, EKG completed, MD at bedside to evaluate, patient states his wears oxygen at home and he has been using hers occasionally, and states he has still been going into work despite being short of breath. patient is alert and oriented, audible inspiratory and expiratory wheezes, patient has pitting edema 2+ on RLE, states it has recently been more swollen than usual. denies history of COPD or CHF, states he has a hx of atrial fibrillation and is anticoagulated. MD at bedside to evaluate, patient to be medicated per MAY.
[2023-10-17 18:23] LABS: Influenza A PCR NEGATIVE (Negative); Influenza B PCR NEGATIVE (Negative); Resp Syncy Virus RNA Qual PCR NEGATIVE (Negative); SARS COV2 PCR INHOUSE NEGATIVE (Negative)
[2023-10-17] MEDS: Digoxin 0.5 MG/2 ML AMPUL 0.25 MG IVPUSH (18:31)
[2023-10-17 18:32] LABS: Alanine Aminotransferase 44 U/L (0-40); Albumin Level 4.1 g/dL (3.5-5.0); Alkaline Phosphatase 88 U/L (39-117); Anion Gap 16 (12-20); Aspartate Amino Transferase 40 U/L (5-37); Bilirubin Direct 0.5 mg/dL (0.0-0.5); Bilirubin Total 1.2 mg/dL (0.0-1.0); Blood Urea Nitrogen 25 mg/dL (9-16); Calcium 9.6 mg/dL (8.4-10.2); Carbon Dioxide 22 mmol/L (22-29); Chloride 108 mmol/L (96-108); Estimated Glomerular Filt Rate 50; Glucose Random 128 mg/dL (60-115); Magnesium 2.3 mg/dL (1.6-2.6); Potassium 4.2 mmol/L (3.3-5.1); Sodium 142 mmol/L (135-145); Total Protein 7.5 g/dL (6.5-8.0)
[2023-10-17] MEDS: Morphine Sulfate 2 MG/ML CARTRIDGE IVPUSH (18:52)
--- NOTE | 2023-10-17 19:02 | P.HPHOSP_ITS ---
History of Present Illness Date of Service: 10/17/23 Attending physician on admission: Chris [facility] Chief Complaint: sob 78-year-old male with history of hypertension, aortic stenosis, ascending aortic dilatation, paroxysmal atrial fibrillation anticoagulated with Xarelto presented to the ED earlier today for evaluation of dyspnea on exertion and generalized weakness ongoing for about 2 weeks but worsening over the last 1 week. He has also been experiencing an increase in bilateral lower extremity edema. He denies any fevers, chills, recent illness, abdominal pain, nausea, vomiting, diarrhea, dysuria, hematuria, increased urinary frequency, orthopnea, PND, lightheadedness, syncope, palpitations, chest pain. On arrival, patient found to be in atrial fibrillation with RVR with heart rates up to 140 received 5 mg IV Lopressor with mild improvement but heart rate returned to around 120. He has also been tachypneic to 40. Blood pressure stable, no hypotension. He was also noted to be hypoxic to 86% with ambulation placed on 2 L supplemental O2. He is afebrile. There is no leukocytosis or significant anemia. Renal function baseline, electrolyte levels normal. Glucose 128. Total bilirubin 1.2, AST 40, ALT 44. Troponin 18. BNP 1547. Negative for COVID-19, RSV, influenza. Chest x-ray shows cardiomegaly with increased interstitial thickening and ground-glass opacities with small bilateral pleural effusions. Findings consistent with pulmonary edema. EKG shows AFib, RVR with rate 126, no ST/depressions. In the ED, given 5 mg IV Lopressor, 60 mg of Lasix, 2 mg of morphine for increased work of breathing, and loaded with digoxin 0.25 mg. Review of Systems 2 Review of Systems: Yes all other systems are reviewed and are negative [facility] Medical History Atrial fibrillation Ascending aorta dilatation Essential hypertension Nonrheumatic aortic (valve) stenosis Family History Father Heart attack Social History Alcohol intake: current Alcohol intake frequency: holidays/special occasions only Alcohol type: wine Patient Tobacco Use Status: Never used Tobacco Smoked in Last 30 Days: No Use of substances other than those prescribed or required for medical reasons: No Advance Directives: No Advance Directives Information Provided: No Do you have a plan to hurt others: No Plan Meds Allergies Allergy/AdvReac Type Severity Reaction Status Date / Time No Known Allergies Allergy Verified 10/17/23 16:55 [No Known Allergies*] Active Medications: Current Medications Acetaminophen (Acetaminophen 325 Mg Tablet) 650 mg PO Q6H PRN PRN Reason: Pain, Mild (Pain Scale 1-3), fever or headache Calcium Carbonate (Calcium Carbonate 750 Mg Tab.Chew) 750 mg PO Q4H PRN PRN Reason: Heartburn Digoxin (Digoxin 0.5 Mg/2 Ml Ampul) 0.25 mg IVPUSH Q6H MADHU Stop: 10/18/23 06:31 Furosemide (Furosemide 40 Mg/4 Ml Vial) 40 mg IVPUSH DAILY [facility]; Protocol Magnesium Hydroxide (Milk Of Magnesia 30 Ml Oral.Susp) 30 ml PO DAILY PRN PRN Reason: Constipation Melatonin (Melatonin 3 Mg Tablet) 6 mg PO BEDTIME PRN PRN Reason: Insomnia Sodium Chloride (0.9 % Sodium Chloride Flush 3 Ml Syringe) 3 ml IVFLUSH QSHIFT [facility] Home Medications ?Medication ?Instructions ?Recorded ?Confirmed ?Last Taken ?Type coenzyme Q10 100 mg capsule 100 mg PO DAILY 10/18/22 01/18/23 Unknown History lisinopril 20 mg tablet 20 mg PO DAILY 10/18/22 01/18/23 Unknown History rivaroxaban 20 mg tablet (Xarelto) 20 mg PO DAILY 10/18/22 01/18/23 Unknown History trazodone 50 mg tablet 25 mg PO BEDTIME PRN 10/18/22 01/18/23 Unknown History simvastatin 40 mg tablet 40 mg PO DAILY 01/18/23 01/18/23 Unknown History Physical Exam 2 Vital Signs and Narrative: Vital Signs: Last Vital Signs Temp 99 F 10/17/23 18:19 Pulse 74 10/17/23 18:19 Resp 16 10/17/23 18:19 BP 131/64 10/17/23 18:19 Pulse Ox 95 10/17/23 18:19 O2 Del Method Room Air 10/17/23 18:19 BMI result Body Mass Index 30.5 Constitutional - Awake and Alert, No apparent distress Eyes - PERRLA, EOMI Cardiovascular - S1S2, irregularly irregular, tachycardic, no murmurs, 2+ BLE edema Respiratory - Normal lung expansion, mild respiratory distress with accessory muscle usage of the abdominal muscles/increased work of breathing, diminished lung sounds bilaterally Gastrointestinal - NT / ND; +BS; No rebound or guarding Extremities - no calf tenderness bilaterally, no swelling Skin - Warm/Dry Neurological - Alert & oriented x3 Psychological - Appropriate affect Results Labs 10/17/23 17:10 10/17/23 17:53 Labs: Laboratory Results - last 24 hr 10/17/23 10/17/23 17:10 17:53 MCV 91.0 MCH 30.1 MCHC 33.1 RDW 14.0 Plt Count 280 MPV 10.8 Immature Gran % (Auto) 0.3 Neut % (Auto) 59.7 Lymph % (Auto) 26.2 [place] % (Auto) 10.7 Eos % (Auto) 2.6 Baso % (Auto) 0.5 Lymph # (Auto) 2.5 [place] # (Auto) 1.0 Eos # (Auto) 0.3 Baso # (Auto) 0.1 Abs Immat Gran (auto) 0.03 Absolute Neuts (auto) 5.7 Absolute Nucleated RBC 0.000 Nucleated RBC % (auto) 0.0 PT 16.8 H INR 1.4 H Anion Gap 16 Estim Creat Clear Calc 46.0 Estimated GFR 50 Random Glucose 128 H Calcium 9.6 Magnesium 2.3 Total Bilirubin 1.2 H Direct Bilirubin 0.5 AST 40 H ALT 44 H Alkaline Phosphatase 88 Troponin I High Sens 18.0 B-Natriuretic Peptide 1547 H Total Protein 7.5 Albumin 4.1 Influenza Type A (PCR) NEGATIVE Influenza Type B (PCR) NEGATIVE RSV RNA Qual (PCR) NEGATIVE SARS-CoV-2 RNA (RT-PCR) NEGATIVE Imaging Radiologist's Impressions: Impressions Chest X-Ray 10/17/23 17:40 IMPRESSION: Cardiomegaly with increased interstitial thickening and groundglass opacities. Small bilateral pleural effusions. Findings consistent with pulmonary edema. Assessment and Plan (1) Atrial fibrillation with RVR: Status: Acute (2) CHF (congestive heart failure): Status: Acute Plan 78-year-old male with history of hypertension, aortic stenosis, ascending aortic dilatation, paroxysmal atrial fibrillation anticoagulated with Xarelto admitted for further management of atrial fibrillation with RVR and new onset congestive heart failure with respiratory distress # paroxysmal atrial fibrillation with RVR -EKG without ST/depressions -HR remains 120-130 after 5mg IV lopressor. Given new CHF, hold on diltiazem. Load with digoxin 0.25mg IV q6h x 3 doses -continue po toprol -continue Xarelto for anticoagulation -cardiac diet -cardiology consult -echocardiogram ordered -monitor on telemetry # new onset congestive heart failure with acute hypoxemic respiratory failure and respiratory distress -BNP >1500, CXR with bilateral pleural effusions and pulmonary edema -given 60 mg IV Lasix in the ED. Continue 40 mg IV Lasix daily -strict I&O -daily weights -cardiac diet -echo -IV morphine p.r.n. for increased work of breathing/distress -continue supplemental O2 to maintain oximetry greater than 92%, wean as tolerated per protocol -cardiology consult -follow renal function/lytes, trend BNP # hypertension -continue lisinopril, metoprolol # HLD -statin DVT prophylaxis-Xarelto Full code Patient requires inpatient stay at least 2 midnights for management of atrial fibrillation with RVR as well as subsequent new onset congestive heart failure requiring IV rate control/rhythm control medications and IV diuresis with close cardiac monitoring and monitoring of renal function and electrolyte levels as well as expert consultation Quality Stroke Does the patient have a stroke diagnosis?: No VTE Prior VTE?: No VTE Risk Level:: Medical - moderate - high VTE Device Contraindication: Treatment Not Indicated VTE Drug Contraindication: N/A - Med Ordered
--- NOTE | 2023-10-17 19:49 | PHA.MEDREC ---
Pharmacy Consult ? Medication Reconciliation Pharmacy has completed the medication reconciliation. Spoke to patient about medications. Patient states they are taking Xalerto 20mg tab once daily. I asked more about that since claims had it last filled at [facility] in [place] in February of 2023 and he confirmed he is still taking that medication daily and has filled since then at [facility]. I went to call the pharmacy but they were closed for the night.
[2023-10-18] VITALS (8 sets, daily range): BP systolic 117–168; BP diastolic 77–102; PULSE 79–102; RESP 16–26; TEMP 36.1–36.8; O2SAT 92–95
[2023-10-18] MEDS: Digoxin 0.5 MG/2 ML AMPUL 0.25 MG IVPUSH ×2 (00:03→07:25)
[2023-10-18] MEDS: Melatonin 3 MG TABLET 6 MG PO (00:10)
[2023-10-18 04:48] LABS: Basophils Absolute Auto 0.1 X10*3/uL (0.0-0.2); Basophils Percent Auto 0.5 % (0-2); Eosinophils Absolute Auto 0.2 X10*3/uL (0.0-0.4); Eosinophils Percent Auto 1.7 % (0-4); Hematocrit 46.2 % (42.0-52.0); Hemoglobin 15.2 g/dl (14.0-18.0); Imm Gran Abs Auto 0.06 X10*3/uL (0.00-0.03); Imm Gran Pct Auto 0.5 % (0.0-0.4); Lymphocytes Absolute Auto 1.7 X10*3/uL (1.2-4.9); Lymphocytes Percent Auto 15.2 % (20-40); MANUAL DIFF FLAG NO; Mean Corpuscular HGB Conc 32.9 g/dl (31.0-36.0); Mean Corpuscular Hemoglobin 29.7 pg (27.0-33.0); Mean Corpuscular Volume 90.4 fL (80.0-98.0); Mean Platelet Volume 10.5 fL (9.4-12.4); Monocytes Absolute Auto 1.1 X10*3/uL (0.1-1.2); Monocytes Percent Auto 9.7 % (2-11); Neutrophils Absolute Auto 8.3 x10*3/uL (2.0-8.3); Neutrophils Percent Auto 72.4 % (45-73); Platelet Count 250 X10*3/uL (160-400); Red Blood Count 5.11 X10*6/uL (4.60-5.80); Red Cell Distribution Width 13.7 % (11.0-16.0); White Blood Count 11.4 X10*3/uL (4.8-10.8)
[2023-10-18 05:07] LABS: Anion Gap 16 (12-20); Blood Urea Nitrogen 23 mg/dL (9-16); Calcium 9.8 mg/dL (8.4-10.2); Carbon Dioxide 27 mmol/L (22-29); Chloride 104 mmol/L (96-108); Estimated Glomerular Filt Rate 43; Glucose Random 102 mg/dL (60-115); Potassium 4.3 mmol/L (3.3-5.1); Sodium 143 mmol/L (135-145)
[2023-10-18 05:08] LABS: B Type Natriuretic Peptide 1695 pg/mL (<100)
--- NOTE | 2023-10-18 07:00 | CA_ITS ---
Transthoracic Echocardiogram Patient (Last, First, Middle): Dom Holland H Gender: Male Date of : 1945 Age: 78 Procedure Date: 10/18/2023 Procedure Type: Transthoracic Echocardiogram [place] [facility] [place] Height: 167.64 cm Weight: 88.45 kg BSA: 1.98 m2 Heart Rate: bpm BP: 168 / 93 mmHg Telephone Solicitor: Referring MD: Moon MCKEON Symptoms: afib rvr, new chf Study Quality: Adequate w Contrast ECG Rhythm: Atrial Fibrillation Conclusions: - The left ventricular systolic function is moderately decreased. The visually estimated ejection fraction is between 30-35%. - The left atrium is severely dilated. - Suspect paradoxical, low-flow, low gradient, moderate to severe vs early severe aortic stenosis. - There is mild dilatation of the ascending aorta measuring 4.10 cm. Findings Procedure Information Contrast agent, definity, is being given per protocol without apparent complications. Left Ventricle Normal left ventricular cavity size. There is mildly increased left ventricular wall thickness. The left ventricular systolic function is moderately decreased. The visually estimated ejection fraction is between 30 35%. There is moderate global hypokinesis. Diastolic function is normal for age. Difficult to assess wall motion even with contrast. Right Ventricle Normal right ventricular cavity size and systolic function. Atria The left atrium is severely dilated. The right atrium is normal in size. Aortic Valve The aortic valve was not well visualized. There is severe calcification of the aortic valve. The peak aortic velocity is 3.15 m/s with a calculated peak gradient of 40 mmHg. The mean gradient is 23 mmHg. The aortic valve area is 0.92 cm2. Dimensionless index 0.25. Stroke volume index 29ml/m2. Overall, could be paradoxical, low-flow, low gradient, moderate to severe vs early severe aortic stenosis. Mitral Valve The mitral valve appears normal. There is trace mitral valve regurgitation. There is no mitral valve stenosis. Pulmonic Valve The pulmonic valve is likely normal. Tricuspid Valve Normal tricuspid valve structure. There is trace tricuspid valve regurgitation. There is no evidence of pulmonary hypertension. Great Vessels There is mild dilatation of the ascending aorta measuring 4.10 cm. Venous The inferior vena cava was not well visualized. The inferior vena cava is normal in size. Pericardium/Pleural There is no evidence of pericardial effusion. Prior Study Comparison Changes noted compared to prior study dated: 09/08/2022. Progression of aortic stenosis. Decrease in LVEF. Measurements 2D Linear Measurements IVSd: 1.23 0.6-0.9/0.6-1.0 cm LVIDd: 5.21 3.9-5.3/4.2-5.9 cm LVIDd Index: 2.63 2.4-3.2/2.2-3.1 cm/m2 LVIDs: 4.09 2.0-3.6 cm LVPWd: 1.21 0.7-1.1 cm Ao Root: 3.50 2.1-3.5 cm LA Diam: 4.00 2.7-3.8/3.0-4.0 cm LAIDs Index: 2.02 1.5-2.3 cm/m2 LV Mass: 318.53 67-162/88-224 g LV Mass Index: 160.87 43-95/49-115 g/m2 LVOT Diam: 2.20 3.0+(-)1.3 cm 2D Systolic Function EF 4C: 38.40 >55% EF 2C: 22.00 >55% EF BiP: 30.70 >55% Mitral Valve MV Pk E: 0.86 MV Decel Time: 161.00 E'Lateral: 11.70 E'Medial: 7.07 E/E' Med: 12.20 E/E' Lat: 7.40 PHT: 47.00 MVA PHT: 4.68 Decel Tyrrell: 5.37 Aortic Valve AoV Pk Raghav: 3.15 AoV Mn Raghav: 2.13 AoV VTI: 0.64 AoV Pk Grad: 40.00 Aov Mn Grad: 23.00 [place] Cont.VTI: 0.92 LVOT LVOT Pk Raghav: 0.77 LVOT Mn Raghav: 0.52 LVOT VTI: 0.16 LVOT Pk Grad: 2.00 LVOT Mn Grad: 1.00 LVOT Diam: 2.20 LVOT Area: 3.80 Diastolic Function MV Pk E: 0.86 E'Medial: 7.07 E/E' Med: 12.20 E' Laterial: 11.70 E/E' Lat: 7.40 Right Ventricle TAPSE (mm): 20.00 TVS' Raghav: 10.00 Tricuspid Valve TR Pk Raghav: 2.28 TR Pk Grad: 21.00 RA Press: 3.00 Great Vessels Aorta Ao Root-2D: 3.50 2.0-3.7 cm Ao Asc: 4.10 2.1-3.4 cm Pulmonary Valve PV Pk Raghav: 0.90 Peak PV Grad: 3.00 Updated in Other Vendor System with Status of Final Juan Carlos Coats MD electronically signed on 10/18/2023 11:35:10 AM with status of Final
[2023-10-18] MEDS: 0.9 % Sodium Chloride Flush 3 ML SYRINGE IVFLUSH ×3 (07:25→20:01)
--- NOTE | 2023-10-18 08:02 | PC.NURSE ---
patient sitting up and eating breakfast, alert and oriented x3, patient afib on the monitor rate controlled low 100s. patient skin dry and intact, currently on 2l NC, medicated per MAY. respirations equal and unlabored
--- NOTE | 2023-10-18 09:28 | P.CONCA_ITS ---
History of Present Illness History of Present Illness Date of Service: 10/18/23 Chief complaint: afib rvr, new chf Narrative: This is a cardiology consultation regarding congestive heart failure. Patient is admitted for complaints of shortness of breath. We had seen him in the clinic last year. At that time, he was referred for atrial fibrillation but patient himself did not have any symptoms. He was on beta-blockers and anticoagulation. He also had mild aortic stenosis. He states that he was in fact doing fine till a couple of weeks ago. Apparently, he started feeling short of breath even with mild activity and he called our office as today. At that time, he was advised to go to the emergency room for evaluation. He was then seen in ER and admitted. Being treated for atrial fibrillation rapid rate and congestive heart failure. Today, he states that he is feeling much better. Review of Systems 2 Review of Systems: Yes all other systems are reviewed and are negative Constitutional: Constitutional: Reports as per HPI and Reports no additional constitutional complaints Eyes: Eyes: Reports as per HPI and Denies no additional eye complaints ENT: Denies system reviewed and no additional complaints, except as documented and Reports as per HPI Cardiovascular: Cardiovascular: Reports as per HPI, Reports no additional cardiovascular complaints, Denies acrocyanosis, Denies cool extremities, Denies chest pain, Denies leg edema, Denies lightheadedness, Denies palpitations and Reports dyspnea Respiratory: Respiratory: Reports as per HPI, Denies no additional respiratory complaints and Reports dyspnea Gastrointestinal: Gastrointestinal: Reports as per HPI and Denies no additional gastrointestinal complaints Genitourinary: Genitourinary: Reports no additional male genitourinary complaints and Reports as per HPI Musculoskeletal: Musculoskeletal: Reports no additional musculoskeletal complaints and Reports as per HPI Integumentary/Breasts: Skin/Breast: Reports system reviewed and no additional complaints, except as docu Neurologic: Reports system reviewed and no additional complaints, except as documented and Reports as per HPI Psychiatric: Psychiatric: Reports no additional psychiatric complaints and Reports as per HPI Endocrine: Endocrine: Reports no additional endocrine complaints, Reports as per HPI and Denies palpitations Hematologic/Lymphatic: Hematologic/Lymphatic: Reports no additional hematologic/lymphatic complaints and Reports as per HPI Allergic/Immunologic: Allergic/Immunologic: Reports no additional allergic/immunologic complaints and Reports as per HPI [facility] Past Medical History Medical History Atrial fibrillation Ascending aorta dilatation Essential hypertension Nonrheumatic aortic (valve) stenosis Family History Family History Father Heart attack Social History Social History Household Members: Spouse Housing: House Do you presently have visiting nurse or other home services: Yes ( has more information on that ) Alcohol intake: current Alcohol intake frequency: holidays/special occasions only Alcohol type: wine Patient Tobacco Use Status: Never used Tobacco Smoked in Last 30 Days: No Use of substances other than those prescribed or required for medical reasons: No Have you been hit, kicked, punched, or otherwise hurt by someone within the past year? If so, by whom?: No Do you feel safe in your current relationship?: Yes Is there a partner from a previous relationship who is making you feel unsafe now?: No Are you made to feel afraid or neglected: No Advance Directives: No Advance Directives Information Provided: No Do you have a plan to hurt others: No Plan Recently lost weight without trying: No Eating poorly because of decreased appetite: Yes Meds Allergies Allergy/AdvReac Type Severity Reaction Status Date / Time No Known Allergies Allergy Verified 10/17/23 16:55 [No Known Allergies*] Active Medications: Current Medications Acetaminophen (Acetaminophen 325 Mg Tablet) 650 mg PO Q6H PRN PRN Reason: Pain, Mild (Pain Scale 1-3), fever or headache Calcium Carbonate (Calcium Carbonate 750 Mg Tab.Chew) 750 mg PO Q4H PRN PRN Reason: Heartburn Furosemide (Furosemide 40 Mg/4 Ml Vial) 20 mg IVPUSH DAILY [facility]; Protocol Magnesium Hydroxide (Milk Of Magnesia 30 Ml Oral.Susp) 30 ml PO DAILY PRN PRN Reason: Constipation Melatonin (Melatonin 3 Mg Tablet) 6 mg PO BEDTIME PRN PRN Reason: Insomnia Last Admin: 10/18/23 00:10 Dose: 6 mg Metoprolol Succinate (Metoprolol Succinate Er 100 Mg Tab.Er.24h) 100 mg PO DAILY [facility]; Protocol Morphine Sulfate (Morphine Sulfate 2 Mg/Ml Cartridge) 2 mg IVPUSH Q4H PRN; Protocol PRN Reason: increased wob/resp distress Rivaroxaban (Rivaroxaban 20 Mg Tablet) 20 mg PO DAILY@1700 [facility] Sodium Chloride (0.9 % Sodium Chloride Flush 3 Ml Syringe) 3 ml IVFLUSH QSHIFT [facility] Last Admin: 10/18/23 07:25 Dose: 3 ml Home Medications ?Medication ?Instructions ?Recorded ?Confirmed ?Last Taken ?Type rivaroxaban 20 mg tablet (Xarelto) 20 mg PO DAILY 10/18/22 10/17/23 10/16/23 History Physical Exam 2 Vital Signs: Vital Signs: Last Vital Signs Temp 97.2 F 10/18/23 08:00 Pulse 95 10/18/23 08:00 Resp 18 10/18/23 08:00 BP 151/89 H 10/18/23 08:00 Pulse Ox 93 10/18/23 08:00 O2 Del Method Nasal Cannula 10/18/23 08:00 O2 Flow Rate 2 10/18/23 08:00 BMI result Body Mass Index 30.5 Const: General: comfortable and no acute distress O rientation/consciousness: patient oriented x3 HEENT: Other: Unremarkable Head: Yes normal to inspection Neck: Neck: Yes normal visual inspection Chest: Chest palpation & inspection: normal inspection of the chest Resp: Auscultation: clear to auscultation bilaterally Cardio: Palpation: normal PMI Heart sounds: S1 normal heart sound present, S2 normal heart sound present, no gallops, Murmur heart sound present systolic II/ and at the right sternal border and no rubs GI: Palpation (GI): Soft to palpation Back/Spine/Pelvis: Other: unremarkable Skin: General skin exam: no rashes or lesions noted Neuro: General: patient oriented x3 Extrem: General: Yes normal to inspection Psych: Mental Status: mental status grossly normal Objective Labs and Meds 10/18/23 04:42 10/18/23 04:42 Lab results: Laboratory Results - last 24 hr 10/17/23 10/17/23 10/18/23 17:10 17:53 04:42 WBC 9.5 11.4 H RBC 5.21 5.11 Hgb 15.7 15.2 Hct 47.4 46.2 MCV 91.0 90.4 MCH 30.1 29.7 MCHC 33.1 32.9 RDW 14.0 13.7 Plt Count 280 250 MPV 10.8 10.5 Immature Gran % (Auto) 0.3 0.5 H Neut % (Auto) 59.7 72.4 Lymph % (Auto) 26.2 15.2 L [place] % (Auto) 10.7 9.7 Eos % (Auto) 2.6 1.7 Baso % (Auto) 0.5 0.5 Lymph # (Auto) 2.5 1.7 [place] # (Auto) 1.0 1.1 Eos # (Auto) 0.3 0.2 Baso # (Auto) 0.1 0.1 Abs Immat Gran (auto) 0.03 0.06 H Absolute Neuts (auto) 5.7 8.3 Absolute Nucleated RBC 0.000 0.000 Nucleated RBC % (auto) 0.0 0.0 PT 16.8 H INR 1.4 H Sodium 142 143 Potassium 4.2 4.3 Chloride 108 104 Carbon Dioxide 22 27 Anion Gap 16 16 BUN 25 H 23 H Creatinine 1.38 1.55 H Estim Creat Clear Calc 46.0 41.0 Estimated GFR 50 43 Random Glucose 128 H 102 Calcium 9.6 9.8 Magnesium 2.3 Total Bilirubin 1.2 H Direct Bilirubin 0.5 AST 40 H ALT 44 H Alkaline Phosphatase 88 Troponin I High Sens 18.0 B-Natriuretic Peptide 1547 H 1695 H Total Protein 7.5 Albumin 4.1 Influenza Type A (PCR) NEGATIVE Influenza Type B (PCR) NEGATIVE RSV RNA Qual (PCR) NEGATIVE SARS-CoV-2 RNA (RT-PCR) NEGATIVE ECG Interpretation: EKG with atrial fibrillation at a rate of 126/Min; nonspecific ST-T changes; cannot exclude old septal infarct. Imaging Radiologist's impression: Impressions Chest X-Ray 10/17/23 17:40 IMPRESSION: Cardiomegaly with increased interstitial thickening and groundglass opacities. Small bilateral pleural effusions. Findings consistent with pulmonary edema. Assessment and Plan (1) Atrial fibrillation with RVR: Status: Acute At home, listed to be on metoprolol ER 100 mg daily. It appears that he got IV beta-blockers in the emergency room and also some digoxin. Currently, ventricular rate is still slightly fast. We can go up on the beta-chase dosing, especially as the blood pressure is also high. Continue with anticoagulation. (2) Acute congestive heart failure: Status: Acute IV diuretics. He states he is already feeling better. Check echocardiogram. Procedures Date of Service Date of Service: 10/18/23
[2023-10-18] MEDS: Furosemide 40 MG/4 ML VIAL 20 MG IVPUSH (11:03)
[2023-10-18] MEDS: Metoprolol Succinate ER 50 MG TAB.ER.24H 150 MG PO (11:03)
--- NOTE | 2023-10-18 11:08 | MHC.CM.PN ---
IMM 10/18/23, Pt lives with his , he is independent, no home health services or DME. He will complete HCP form here, naming his Katelyn. can transport home at DC. PCP confirmed: Naveen Barney. DCP: home with services. CM to follow and assist with DC plan.
--- NOTE | 2023-10-18 15:30 | HO.PM.IMPN ---
Subjective Subjective Date of Service: 10/18/23 Interval History: Seen in follow up for afib rvr, chf exacerbation Interval history: Feeling much better. WOB significantly improved. No lightheadedness, palpitations, chest pain. Still requiring 2L O2. NOw with bump in creat, possible overdiuresis, -3.5L since arrival. Review of Systems Review of Systems: Yes all other systems are reviewed and are negative Physical Exam Vital Signs: Vital Signs: Last Vital Signs Temp 97.0 F 10/18/23 15:10 Pulse 79 10/18/23 15:10 Resp 17 10/18/23 15:10 BP 117/77 10/18/23 15:10 Pulse Ox 92 10/18/23 15:10 O2 Del Method Nasal Cannula 10/18/23 15:10 O2 Flow Rate 2 10/18/23 15:10 BMI result Body Mass Index 30.5 Constitutional - Awake and Alert, No apparent distress Eyes - PERRLA, EOMI Cardiovascular - S1S2, RRR, 1+ ble edema Respiratory - Normal lung expansion, Normal respiratory effort, No respiratory distress, CTA bilaterally Gastrointestinal - NT / ND; +BS; No rebound or guarding Extremities - no calf tenderness bilaterally, no swelling Skin - Warm/Dry Neurological - Alert & oriented x3 Psychological - Appropriate affect Objective Data Active Medications Acetaminophen (Acetaminophen 325 Mg Tablet) 650 mg PO Q6H PRN PRN Reason: Pain, Mild (Pain Scale 1-3), fever or headache Calcium Carbonate (Calcium Carbonate 750 Mg Tab.Chew) 750 mg PO Q4H PRN PRN Reason: Heartburn Furosemide (Furosemide 40 Mg/4 Ml Vial) 20 mg IVPUSH DAILY [facility]; Protocol Last Admin: 10/18/23 11:03 Dose: 20 mg Documented By: MEME Magnesium Hydroxide (Milk Of Magnesia 30 Ml Oral.Susp) 30 ml PO DAILY PRN PRN Reason: Constipation Melatonin (Melatonin 3 Mg Tablet) 6 mg PO BEDTIME PRN PRN Reason: Insomnia Last Admin: 10/18/23 00:10 Dose: 6 mg Documented By: JERMAN Metoprolol Succinate (Metoprolol Succinate Er 50 Mg Tab.Er.24h) 150 mg PO DAILY [facility]; Protocol Last Admin: 10/18/23 11:03 Dose: 150 mg Documented By: MEME Morphine Sulfate (Morphine Sulfate 2 Mg/Ml Cartridge) 2 mg IVPUSH Q4H PRN; Protocol PRN Reason: increased wob/resp distress Rivaroxaban (Rivaroxaban 20 Mg Tablet) 20 mg PO DAILY@1700 [facility] Sodium Chloride (0.9 % Sodium Chloride Flush 3 Ml Syringe) 3 ml IVFLUSH QSHIFT [facility] Last Admin: 10/18/23 07:25 Dose: 3 ml Documented By: CHICO Labs 10/18/23 04:42 10/18/23 04:42 Labs: Laboratory Results - last 24 hr 10/17/23 10/17/23 10/18/23 17:10 17:53 04:42 MCV 91.0 90.4 MCH 30.1 29.7 MCHC 33.1 32.9 RDW 14.0 13.7 Plt Count 280 250 MPV 10.8 10.5 Immature Gran % (Auto) 0.3 0.5 H Neut % (Auto) 59.7 72.4 Lymph % (Auto) 26.2 15.2 L [place] % (Auto) 10.7 9.7 Eos % (Auto) 2.6 1.7 Baso % (Auto) 0.5 0.5 Lymph # (Auto) 2.5 1.7 [place] # (Auto) 1.0 1.1 Eos # (Auto) 0.3 0.2 Baso # (Auto) 0.1 0.1 Abs Immat Gran (auto) 0.03 0.06 H Absolute Neuts (auto) 5.7 8.3 Absolute Nucleated RBC 0.000 0.000 Nucleated RBC % (auto) 0.0 0.0 PT 16.8 H INR 1.4 H Anion Gap 16 16 Estim Creat Clear Calc 46.0 41.0 Estimated GFR 50 43 Random Glucose 128 H 102 Calcium 9.6 9.8 Magnesium 2.3 Total Bilirubin 1.2 H Direct Bilirubin 0.5 AST 40 H ALT 44 H Alkaline Phosphatase 88 Troponin I High Sens 18.0 B-Natriuretic Peptide 1547 H 1695 H Total Protein 7.5 Albumin 4.1 Influenza Type A (PCR) NEGATIVE Influenza Type B (PCR) NEGATIVE RSV RNA Qual (PCR) NEGATIVE SARS-CoV-2 RNA (RT-PCR) NEGATIVE Assessment and Plan (1) Acute congestive heart failure: Status: Acute (2) Atrial fibrillation with RVR: Status: Acute Plan 78-year-old male with history of hypertension, aortic stenosis, ascending aortic dilatation, paroxysmal atrial fibrillation anticoagulated with Xarelto admitted for further management of atrial fibrillation with RVR and new onset congestive heart failure with respiratory distress # paroxysmal atrial fibrillation with RVR -EKG without ST/depressions -HR remains 120-130 after 5mg IV lopressor and loaded with dig 0.25mg q6h x3 doses in ed/on admission -HR improved and in sinus rhythm 10/17. Increase torpol to 150mg daily per cardiology -continue Xarelto for anticoagulation -cardiac diet -cardiology input appreciated -monitor on telemetry # new onset congestive heart failure with acute hypoxemic respiratory failure and respiratory distress -BNP >1500, CXR with bilateral pleural effusions and pulmonary edema -given 60 mg IV Lasix in the ED with bump in creat to 1.55 this morning and -3.5L since arrival -Decrease lasix to 20mg IV daily -strict I&O -daily weights -cardiac diet -echo shows moderately decreased LV systolic function with EF 30-35% and severely dilated left atrium. There is also paradoxical, low-flow, low gradient, moderate to severe versus early severe aortic stenosis -IV morphine p.r.n. for increased work of breathing/distress -continue supplemental O2 to maintain oximetry greater than 92%, wean as tolerated per protocol -cardiology consult -follow renal function/lytes, trend BNP # hypertension -continue lisinopril, increase Toprol to 150 mg daily # HLD -statin DVT prophylaxis-Xarelto Full code Patient requires ongoing inpatient stay due to CHF exacerbation still with volume overload requiring IV diuresis at lower dose given increased creatinine level and will require ongoing cardiac monitoring given AFib RVR with close monitoring of renal function/electrolytes and expert consultation Quality Stroke Does the patient have a stroke diagnosis?: No VTE Prior VTE?: No VTE Risk Level:: Medical - moderate - high VTE Device Contraindication: Treatment Not Indicated VTE Drug Contraindication: N/A - Med Ordered
[2023-10-18] MEDS: Rivaroxaban 20 MG TABLET PO (19:08)
[2023-10-19] VITALS: BP 143/92; PULSE 72; RESP 20; TEMP 36.5; O2SAT 96
[2023-10-19 04:00] VITALS: BP 153/88; PULSE 88; RESP 20; TEMP 36.1; O2SAT 94
[2023-10-19 06:33] LABS: Anion Gap 13 (12-20); Blood Urea Nitrogen 21 mg/dL (9-16); Calcium 8.9 mg/dL (8.4-10.2); Carbon Dioxide 28 mmol/L (22-29); Chloride 104 mmol/L (96-108); Creatinine Clr Calc Pharmacy 53.8; Estimated Glomerular Filt Rate 60; Glucose Random 96 mg/dL (60-115); Potassium 3.6 mmol/L (3.3-5.1); Sodium 141 mmol/L (135-145)
[2023-10-19 07:25] VITALS: BP 145/97; PULSE 85; RESP 20; TEMP 36.1; O2SAT 95
[2023-10-19] MEDS: 0.9 % Sodium Chloride Flush 3 ML SYRINGE IVFLUSH (09:20)
[2023-10-19] MEDS: Metoprolol Succinate ER 50 MG TAB.ER.24H 150 MG PO (09:20)
--- NOTE | 2023-10-19 10:10 | PM.PNCARD ---
Subjective Subjective Date of Service: 10/19/23 Interval history: He states that he is feeling much better. Shortness of breath is significantly improved. Review of Systems Review of Systems Yes all other systems are reviewed and are negative Constitutional: Reports as per HPI and Reports no additional constitutional complaints Eyes: Reports as per HPI and Denies no additional eye complaints Denies system reviewed and no additional complaints, except as documented and Reports as per HPI Cardiovascular: Reports as per HPI, Reports no additional cardiovascular complaints, Denies acrocyanosis, Denies cool extremities, Denies chest pain, Denies leg edema, Denies lightheadedness, Denies palpitations and Denies dyspnea Respiratory: Reports as per HPI, Denies no additional respiratory complaints and Denies dyspnea Gastrointestinal: Reports as per HPI and Denies no additional gastrointestinal complaints Genitourinary: Reports no additional male genitourinary complaints and Reports as per HPI Musculoskeletal: Reports no additional musculoskeletal complaints and Reports as per HPI Skin/Breast: Reports system reviewed and no additional complaints, except as docu Reports system reviewed and no additional complaints, except as documented and Reports as per HPI Psychiatric: Reports no additional psychiatric complaints and Reports as per HPI Endocrine: Reports no additional endocrine complaints, Reports as per HPI and Denies palpitations Hematologic/Lymphatic: Reports no additional hematologic/lymphatic complaints and Reports as per HPI Allergic/Immunologic: Reports no additional allergic/immunologic complaints and Reports as per HPI Physical Exam Vital Signs: Last Vital Signs Temp 97.0 F 10/19/23 07:25 Pulse 85 10/19/23 07:25 Resp 20 10/19/23 07:25 BP 145/97 H 10/19/23 07:25 Pulse Ox 95 10/19/23 07:25 O2 Del Method Nasal Cannula 10/19/23 07:25 O2 Flow Rate 1 10/19/23 07:25 BMI result Body Mass Index 30.5 Const General: comfortable and no acute distress Orientation/consciousness: patient oriented x3 HEENT Other: Unremarkable Head: Yes normal to inspection Neck Neck: Yes normal visual inspection Chest Chest palpation & inspection: normal inspection of the chest Resp Auscultation: clear to auscultation bilaterally Cardio Palpation: normal PMI Heart sounds: S1 normal heart sound present, S2 normal heart sound present, no gallops, Murmur heart sound present systolic II/ and at the right sternal border and no rubs GI Palpation (GI): Soft to palpation Back/Spine/Pelvis Other: unremarkable Skin General skin exam: no rashes or lesions noted Neuro General: patient oriented x3 Extrem General: Yes normal to inspection Psych Mental Status: mental status grossly normal Objective Labs and Meds 10/18/23 04:42 10/19/23 05:32 Lab results: Laboratory Results - last 24 hr 10/19/23 05:32 Sodium 141 Potassium 3.6 Chloride 104 Carbon Dioxide 28 Anion Gap 13 BUN 21 H Creatinine 1.18 Estim Creat Clear Calc 53.8 Estimated GFR 60 Random Glucose 96 Calcium 8.9 D Progress Note: A&P Assessment and plan (1) Atrial fibrillation with RVR: Status: Acute Assessment and Plan: This seems to improved since the time of admission. Currently, in atrial fibrillation and the rate in the 80s. We have increased the beta-chase dosing. Continue that. Continue anticoagulation. We could consider cardioversion but he does have severely dilated left atrium and hence may not respond. To be decided. Of note, he also has aortic stenosis on the echocardiogram and hence there is anesthesia risk as well. (2) Acute congestive heart failure: Status: Acute Assessment and Plan: With IV diuretics, he has improved significantly. He states his breathing is much better. May switch to oral diuretics. He is already beta-blockers. Probably add Entresto and further optimize meds as an outpatient. (3) Nonrheumatic aortic (valve) stenosis: Status: Acute Assessment and Plan: In the recent echocardiogram, suspected paradoxical, low-flow, low gradient moderate to severe versus early severe aortic stenosis. Unclear how much this is contributing to the current issues. He will likely need a diagnostic catheterization in the future. (4) Ascending aorta dilatation: Status: Acute Assessment and Plan: Not significant at this time. On the echocardiogram, 4.1 cm. May be followed periodically. (5) Essential hypertension: Status: Acute Assessment and Plan: Add Entresto as above. Plan d/w Rosalia Anderson. Time Spent With Patient Time: Total time managing care of this patient today ____ minutes. Progress Note: Quality Stroke Does the patient have a stroke diagnosis?: No Procedures Date of Service Date of Service: 10/19/23
[2023-10-19 10:58] VITALS: BP 135/90; PULSE 93; RESP 20; TEMP 36.4; O2SAT 95
[2023-10-19] MEDS: Sacubitril/Valsartan 24/26 1 TAB TABLET PO (11:55)
--- NOTE | 2023-10-19 12:21 | P.DS_ITS ---
DS: Providers Provider Date of Service: 10/19/23 Date of admission: 10/17/23 18:54 Date of discharge: 10/19/23 Primary care physician: Naveen Barney MD Consults: 10/17/23 18:53 Consult to Cardiology Routine Consulting Provider: [facility] Reason for consultation: afib rvr, new chf Attending physician on discharge: William Sands Discharging clinician: Izzy Anderson DS: Diagnosis Discharge Diagnosis (1) Atrial fibrillation with RVR: Status: Acute (2) Acute congestive heart failure: Status: Acute (3) Nonrheumatic aortic (valve) stenosis: Status: Acute (4) Ascending aorta dilatation: Status: Acute (5) Essential hypertension: Status: Acute DS: Summary Hospital Course Hospital Course: From H&P on the day of admission 78-year-old male with history of hypertension, aortic stenosis, ascending aortic dilatation, paroxysmal atrial fibrillation anticoagulated with Xarelto presented to the ED earlier today for evaluation of dyspnea on exertion and generalized weakness ongoing for about 2 weeks but worsening over the last 1 week. He has also been experiencing an increase in bilateral lower extremity edema. He denies any fevers, chills, recent illness, abdominal pain, nausea, vomiting, diarrhea, dysuria, hematuria, increased urinary frequency, orthopnea, PND, lightheadedness, syncope, palpitations, chest pain. On arrival, patient found to be in atrial fibrillation with RVR with heart rates up to 140 received 5 mg IV Lopressor with mild improvement but heart rate returned to around 120. He has also been tachypneic to 40. Blood pressure stable, no hypotension. He was also noted to be hypoxic to 86% with ambulation placed on 2 L supplemental O2. He is afebrile. There is no leukocytosis or significant anemia. Renal function baseline, electrolyte levels normal. Glucose 128. Total bilirubin 1.2, AST 40, ALT 44. Troponin 18. BNP 1547. Negative for COVID-19, RSV, influenza. Chest x-ray shows cardiomegaly with increased interstitial thickening and ground-glass opacities with small bilateral pleural effusions. Findings consistent with pulmonary edema. EKG shows AFib, RVR with rate 126, no ST/depressions. In the ED, given 5 mg IV Lopressor, 60 mg of Lasix, 2 mg of morphine for increased work of breathing, and loaded with digoxin 0.25 mg. Paroxysmal atrial fibrillation with rapid ventricular response. Initially treated with IV Lopressor and loaded with digoxin emergency department. His dose of beta-chase was increased in his heart rate has improved. He was continued on Xarelto for anticoagulation. Acute respiratory failure with hypoxia due to New onset heart failure Likely exacerbated by atrial fibrillation with rapid ventricular response. Initially treated with IV Lasix, symptoms improved and he was transitioned to oral Lasix. Echocardiogram showed decrease in systolic function with EF of 30- 35%. Also moderate to severe versus early severe aortic stenosis. He was started on Entresto. Patient was able to be weaned off of supplemental oxygen and ambulate without dyspnea. He will be discharged home with oral Lasix, Entresto and increased dose of metoprolol as above. He has follow-up appointment scheduled with Cardiology on October 24. Recommend BNP 2 days prior to his appointment. Time Attestation Discharge Coordination Time (in mins): 36 Quality: Safe Use of Opioids Does Pt have an Active Cancer Diagnosis on the Problem List?: No Quality: Stroke Does the patient have a stroke diagnosis?: No Physical Exam Vital Signs: Vital Signs: Last Vital Signs Temp 97.6 F 10/19/23 10:58 Pulse 93 10/19/23 10:58 Resp 20 10/19/23 10:58 BP 135/90 H 10/19/23 10:58 Pulse Ox 95 10/19/23 10:58 O2 Del Method Room Air 10/19/23 10:58 O2 Flow Rate 1 10/19/23 07:25 BMI result Body Mass Index 30.5 Const: General: cooperative, comfortable, alert and awake Nutritional Appearance: overweight Orientation/consciousness: patient oriented x3 Resp: Effort & Inspection: normal respiratory effort, able to speak in complete sentences, no respiratory distress and no use of accessory muscles Cardio: Rate: regular rate GI: Inspection: No distended Palpation (GI): Soft to palpation Neuro: General: patient oriented x3 Extrem: General: Yes no pedal edema DS: Data Data Completed and Pending Labs on day of discharge: Laboratory Results - last 24 hr 10/19/23 05:32 Sodium 141 Potassium 3.6 Chloride 104 Carbon Dioxide 28 Anion Gap 13 BUN 21 H Creatinine 1.18 Estim Creat Clear Calc 53.8 Estimated GFR 60 Random Glucose 96 Calcium 8.9 D Discharge Plan Discharge Anticipated Discharge Date/Time: 10/19/23 12:29 Patient Disposition: Home, Self-Care Discharge Diagnosis: Atrial fibrillation with rapid ventricular response CHF aortic stenosis Referrals: Naveen Barney MD [Primary Care Provider] - 1 Week Juan Carlos Coats MD [Physician] - 1 Week Discharge Medications: New metoprolol succinate 50 mg Tablet Extended Release 24 Hr 150 mg PO DAILY 90 Days Qty: 270 0RF Protocol: Hold for SBP/HR < HOLD for SBP < : 90 HOLD for HR < : 60 Entresto 24-26 mg Tablet 1 tab PO BID 90 Days Qty: 180 0RF Protocol: Hold for SBP< HOLD for SBP < : 90 furosemide 20 mg Tablet 20 mg PO DAILY 90 Days Qty: 90 0RF Protocol: Hold for SBP< HOLD for SBP < : 90 Continued Xarelto 20 mg tablet 20 mg PO DAILY Rx Instructions: must administer with evening meal Discontinued metoprolol succinate 100 mg tablet extended release 24 hr 100 mg PO DAILY Qty: 90 0RF Rx Instructions: MUST SCHEDULE FOLLOW-UP APPT FOR REFILLS Discharge Orders: Discharge Order (Routine); Ordered 10/19/23 Ordered By: Izzy Anderson Diet: Low salt diet Activity on Discharge: As tolerated Stand Alone Forms: Patient Portal Discharge page Print Language: Surinamese Other Ambulatory Orders: Basic Metabolic Panel (Routine) Timeframe: 20231023 Facility: [facility] - Location: Laboratory Ordered By: Izzy Anderson Care Plan Goals: See below Health Concerns: Atrial fibrillation with rapid ventricular response Acute respiratory failure due to acute CHF Aortic stenosis Plan of Treatment: Your dose of metoprolol was increased to 150 mg daily for better heart rate control You have been started on new medication for your heart called Entresto You have been started on a diuretic called Lasix. monitor your weight daily, follow low salt diet. You have a follow-up appointment scheduled with Cardiology on October 24. Please have lab work done prior to appointment Assessment: See discharge summary
--- NOTE | 2023-10-19 12:43 | MHC.CM.PN ---
Pt was medically cleared for DC, he will go home via private transport, plan is self care.
== END 2023-10-19 14:00 | disposition home or self-care (01) | DRG 293 ==
LOC: HO.ED 18:01 → HO.EDOVER 19:18 → HO.IMC 10-18 07:30
PROVIDERS: Physician Assistant; Admitting Provider Physician Assistant; Emergency Provider Emergency Medicine; PCP Family Medicine; Visit Provider Physician Assistant Medical
DX: I11.0 Hypertensive heart disease with heart failure (principal); I48.0 Paroxysmal atrial fibrillation; I50.9 Heart failure, unspecified; E78.5 Hyperlipidemia, unspecified; I35.0 Nonrheumatic aortic (valve) stenosis; I77.819 Aortic ectasia, unspecified site; Z20.822 Contact with and (suspected) exposure to COVID-19; Z79.01 Long term (current) use of anticoagulants; Z79.899 Other long term (current) drug therapy
CPT/HCPCS: 0241U; 36415; 71045; 80048; 80076; 83735; 83880; 84484; 85025; 85610; 93005; 93306; 99285; J1160; J1940; J2270; Q9957

== ENCOUNTER 2023-10-17 18:54 | Outpatient (BNV) | payer MEDICARE, MEDICAID, SELFPAY | END 2023-10-18 07:00 | PROVIDERS: Admitting Provider Physician Assistant; Emergency Provider Emergency Medicine; PCP Family Medicine; Visit Provider Internal Medicine | DX: I35.0 Nonrheumatic aortic (valve) stenosis (principal); I35.8 Other nonrheumatic aortic valve disorders | CPT/HCPCS: 93306 ==

== ENCOUNTER → 2023-10-17 18:54 | Outpatient (BNV) | payer MEDICARE, MEDICAID, SELFPAY | PROVIDERS: Admitting Provider Physician Assistant; Emergency Provider Emergency Medicine; PCP Family Medicine; Visit Provider Internal Medicine | DX: I48.91 Unspecified atrial fibrillation (principal); I50.9 Heart failure, unspecified | CPT/HCPCS: 93010; 99223; 99233 ==

== ENCOUNTER → 2023-10-17 18:54 | Outpatient (BNV) | payer MEDICARE, MEDICAID, SELFPAY | PROVIDERS: Admitting Provider Physician Assistant; Emergency Provider Emergency Medicine; PCP Family Medicine; Visit Provider Physician Assistant | DX: I48.91 Unspecified atrial fibrillation (principal); I50.9 Heart failure, unspecified; I35.0 Nonrheumatic aortic (valve) stenosis; I77.810 Thoracic aortic ectasia; I10 Essential (primary) hypertension | CPT/HCPCS: 99223; 99232; 99239 ==

== ENCOUNTER 2023-10-25 09:09 | Outpatient (AMB) | payer MEDICARE, MEDICAID, SELFPAY ==
[2023-10-25 09:46] VITALS: BP 124/60; PULSE 68; BMI 30.4
--- NOTE | 2023-10-25 09:46 | A.OFFVIS_ITS ---
Vital Signs 10/25/23 09:46 Height 5 ft 7 in Weight 194 lb 0.108 oz BMI 30.4 BP 124/60 Blood Pressure Location Lt brachial Position Sitting Pulse 68 Pulse Source Pulse Oximeter Intake Visit Reasons: 6 mth f/up Allergies No Known Allergies [No Known Allergies*] Allergy (Verified 10/17/23 16:55) Medication List - Last Reconciled 10/25/23 by Juan Carlos Coats MD furosemide 20 mg See Protocol PO DAILY 90 days metoprolol succinate ER 150 mg See Protocol PO DAILY 90 days rivaroxaban (Xarelto) 20 mg PO DAILY sacubitril-valsartan 24-26 mg (Entresto) 1 tab See Protocol PO BID 90 days HPI Comments Details: Dom returns for follow-up after recent hospitalization. He was admitted with atrial fibrillation rapid rate and congestive heart failure. He was diuresed. Beta-chase dose was increased. Subsequently, discharged home. He was originally seen about a year ago for atrial fibrillation. He did not have any symptoms and the rate was well controlled and he was left on beta- blockers and anticoagulation. However, he states his symptoms started about 2 weeks or so prior to admission. Currently, he states he is back to his normal self. Echocardiogram during hospitalization showed evidence of LV dysfunction as well as paradoxical, low-flow, low gradient aortic stenosis. [facility] Medical History Atrial fibrillation Ascending aorta dilatation Essential hypertension Nonrheumatic aortic (valve) stenosis Family History Father Heart attack Social History Household Members: Spouse Housing: House Do you presently have visiting nurse or other home services: Yes ( has more information on that ) Alcohol intake: current Alcohol intake frequency: holidays/special occasions only Alcohol type: wine Patient Tobacco Use Status: Never used Tobacco service: No Review of Systems Const Denies weakness ENT Denies dizziness Card Denies chest pain, Denies chest pain with activity, Denies syncope, Denies rapid heart rate, Denies pedal edema, Denies edema, Denies leg edema, Denies lightheadedness, Denies palpitations, Denies dyspnea, Denies dyspnea on exertion and Denies orthopnea Resp Denies cough, Denies dyspnea and Denies dyspnea on exertion GI Denies hematochezia and Denies change in stool character Musc Denies abnormal gait, Denies muscle cramps, Denies muscle weakness, Denies numbness, Denies radiating pain into limb and Denies tingling Neuro Denies abnormal gait, Denies dizziness, Denies syncope, Denies numbness, Denies tingling and Denies weakness Endo Denies palpitations Physical Exam Vital Signs: Last Vital Signs Pulse 68 10/25/23 09:46 BP 124/60 10/25/23 09:46 BMI result Body Mass Index 30.4 Const General: comfortable and no acute distress Orientation/consciousness: patient oriented x3 HEENT Other: Unremarkable Head: Yes normal to inspection Neck Neck: Yes normal visual inspection Chest Chest palpation & inspection: normal inspection of the chest Resp Auscultation: clear to auscultation bilaterally Cardio Palpation: normal PMI Heart sounds: S1 normal heart sound present, S2 abnormal (soft), no gallops, Murmur heart sound present systolic III/ and at the right sternal border and no rubs GI Palpation (GI): Soft to palpation Back/Spine/Pelvis Other: unremarkable Skin General skin exam: no rashes or lesions noted Neuro General: patient oriented x3 Extrem General: Yes normal to inspection Psych Mental Status: mental status grossly normal Assessment & Plan Assessment & Plan (1) Persistent atrial fibrillation: Code(s): I48.19 - Other persistent atrial fibrillation Category: Medical Plan: Continue high dose of beta-blockers. Check Holter monitor. Continue anticoagulation. In the echocardiogram, severely dilated left atrium. Hence may not stay in sinus even if cardioverted. Also there is Anesthesia risk with severe aortic stenosis and cardiomyopathy. (2) Nonrheumatic aortic (valve) stenosis: Code(s): I35.0 - Nonrheumatic aortic (valve) stenosis Category: Medical Plan: In the echocardiogram, mean gradient across aortic valve was 23 mm Hg with a calculated valve area of 0.9 sq cm. Reduced stroke volume index. Dimensionless index 0.25. Suspected paradoxical, low-flow, low gradient moderate to severe versus severe aortic stenosis. Due to recent heart failure hospitalization, we will proceed with further evaluation. Diagnostic cardiac catheterization and possible TAVR valve after that. Discussed with patient as well as and they agree. We will schedule this. (3) Essential hypertension: Code(s): I10 - Essential (primary) hypertension Category: Medical Plan: Stable. (4) Ascending aorta dilatation: Code(s): I77.810 - Thoracic aortic ectasia Category: Medical Plan: Ascending aortic size 4.1 cm. No clinical significance at this time but will need to be followed. Plan Discussed with who came for appointment. Orders: Orders ECG 3 day holter monitor Today I48.19 - Other persistent atrial fibrillation Cardiac Cath LT Diagnostic Today I35.0 - Nonrheumatic aortic (valve) stenosis Complete Blood Count no Diff Today I35.0 - Nonrheumatic aortic (valve) stenosis Prothrombin Time INR Today I35.0 - Nonrheumatic aortic (valve) stenosis Basic Metabolic Panel Today I35.0 - Nonrheumatic aortic (valve) stenosis Coding Level of Care Code Est Pt Level 4 (92386) Diagnoses Persistent atrial fibrillation I48.19 Nonrheumatic aortic (valve) stenosis I35.0 Essential hypertension I10 Ascending aorta dilatation I77.810
== END 2023-10-25 10:29 | disposition home or self-care (01) ==
PROVIDERS: PCP Family Medicine; Visit Provider Internal Medicine
DX: I48.19 Other persistent atrial fibrillation (principal); I35.0 Nonrheumatic aortic (valve) stenosis; I10 Essential (primary) hypertension; I77.810 Thoracic aortic ectasia
CPT/HCPCS: 99214

== ENCOUNTER 2023-10-25 09:09 | Outpatient (REF) | payer MEDICARE, MEDICAID, SELFPAY ==
[2023-10-25 11:11] LABS: Hematocrit 52.3 % (42.0-52.0); Mean Corpuscular HGB Conc 32.5 g/dl (31.0-36.0); Mean Corpuscular Hemoglobin 30.1 pg (27.0-33.0); Mean Corpuscular Volume 92.7 fL (80.0-98.0); Mean Platelet Volume 10.4 fL (9.4-12.4); Platelet Count 287 X10*3/uL (160-400); Red Blood Count 5.64 X10*6/uL (4.60-5.80); Red Cell Distribution Width 13.5 % (11.0-16.0)
[2023-10-25 11:16] LABS: INTERNATIONAL NORM RATIO 1.3 (0.9-1.1); Prothrombin Time 15.6 SEC (11.1-13.3)
[2023-10-25 11:57] LABS: Anion Gap 13 (12-20); Blood Urea Nitrogen 15 mg/dL (9-16); Calcium 9.9 mg/dL (8.4-10.2); Carbon Dioxide 30 mmol/L (22-29); Chloride 101 mmol/L (96-108); Estimated Glomerular Filt Rate 51; Glucose Random 109 mg/dL (60-115); Potassium 5.7 mmol/L (3.3-5.1); Sodium 138 mmol/L (135-145)
== END 2023-10-25 09:10 | disposition home or self-care (01) ==
LOC: HO.LAB 09:09
PROVIDERS: PCP Family Medicine; Visit Provider Internal Medicine
DX: I48.19 Other persistent atrial fibrillation (principal); I35.0 Nonrheumatic aortic (valve) stenosis; I10 Essential (primary) hypertension; I77.810 Thoracic aortic ectasia
CPT/HCPCS: 36415; 80048; 85027; 85610; 99212

== ENCOUNTER → 2023-10-31 11:09 | Outpatient (REF) | payer MEDICARE, MEDICAID, SELFPAY ==
--- NOTE | 2023-10-31 11:12 | HM_ITS ---
Conclusion: 1. Patient was monitored for total period of 2 days and 23 hours 2. Baseline was atrial flutter/fibrillation with average heart rate of 83 beats per minute with overall adequate rate control 3. Occasional PVCs noted with for 3 beat salvos of nonsustained VT at 148 beats per minute 4. No patient reported events MTDD
== END ==
LOC: HO.CARD 11:09
PROVIDERS: PCP Family Medicine; Visit Provider Internal Medicine
DX: I48.19 Other persistent atrial fibrillation (principal)
CPT/HCPCS: 93242

== ENCOUNTER → 2023-10-31 11:12 | Outpatient (BNV) | payer MEDICARE, MEDICAID, SELFPAY | PROVIDERS: PCP Family Medicine; Visit Provider Internal Medicine Cardiovascular Disease | DX: I48.91 Unspecified atrial fibrillation (principal); I48.92 Unspecified atrial flutter | CPT/HCPCS: 93244 ==

== ENCOUNTER → 2023-11-09 23:59 | Outpatient (BNV) | payer MEDICARE, MEDICAID, SELFPAY | PROVIDERS: PCP Family Medicine; Visit Provider Internal Medicine Cardiovascular Disease | DX: R93.1 Abnormal findings on diagnostic imaging of heart and coronary circulation (principal) | CPT/HCPCS: 93460; 99152 ==

== ENCOUNTER 2023-11-16 08:28 | Outpatient (AMB) | payer MEDICARE, MEDICAID, SELFPAY ==
--- NOTE | 2023-11-16 08:35 | MHC.OFFVIS ---
Vital Signs 11/16/23 08:38 Height 5 ft 7 in Weight 194 lb 0.108 oz BMI 30.4 BP 114/80 Blood Pressure Location Lt brachial Position Sitting Pulse 73 Pulse Source Pulse Oximeter Intake Visit Reasons: 2 wk s/p cath HS /dc only Emt I/85 Required: No Accompanied by: Spouse Allergies No Known Allergies [No Known Allergies*] Allergy (Verified 10/17/23 16:55) Medication List - Last Reconciled 11/16/23 by Juan Carlos Coats MD aspirin (Adult Aspirin Regimen) 81 mg PO DAILY atorvastatin 80 mg PO QPM furosemide 20 mg See Protocol PO DAILY 90 days metoprolol succinate ER 150 mg See Protocol PO DAILY 90 days rivaroxaban (Xarelto) 20 mg PO DAILY sacubitril-valsartan 24-26 mg (Entresto) 1 tab See Protocol PO BID 90 days HPI Comments Details: Dom returns for follow-up after recent hospitalization. He was admitted with atrial fibrillation rapid rate and congestive heart failure. He was diuresed. Beta-chase dose was increased. Subsequently, discharged home. He was originally seen about a year ago for atrial fibrillation. He did not have any symptoms and the rate was well controlled and he was left on beta-blockers and anticoagulation. However, he states his symptoms started about 2 weeks or so prior to admission. Currently, he states he is back to his normal self. Echocardiogram during hospitalization showed evidence of LV dysfunction as well as paradoxical, low-flow, low gradient aortic stenosis. Following this, he underwent cardiac catheterization that showed significant multivessel disease. Was advised bypass surgery with aortic valve replacement as an inpatient but decided to sign himself out. Today, he states he feels fine. No cardiac symptoms. [facility] Medical History (Updated 11/16/23 @ 08:45 by Juan Carlos Coats MD) Atherosclerotic cardiovascular disease Atrial fibrillation Ascending aorta dilatation Essential hypertension Nonrheumatic aortic (valve) stenosis Family History Father Heart attack Social History Household Members: Spouse Housing: House Do you presently have visiting nurse or other home services: Yes ( has more information on that ) Alcohol intake: current Alcohol intake frequency: holidays/special occasions only Alcohol type: wine Patient Tobacco Use Status: Never used Tobacco service: No Review of Systems Const Denies chills, Denies fatigue, Denies fever(s), Denies weight gain and Denies weight loss ENT Denies dizziness Card Denies chest pain, Denies leg edema, Denies lightheadedness, Denies palpitations, Denies dyspnea on exertion, Denies orthopnea and Denies other Resp Denies cough and Denies dyspnea on exertion GI Denies hematochezia and Denies change in stool character Musc Denies abnormal gait, Denies muscle weakness, Denies numbness, Denies radiating pain into limb and Denies tingling Neuro Denies abnormal gait, Denies dizziness, Denies numbness and Denies tingling Endo Denies fatigue and Denies palpitations Physical Exam Vital Signs: Last Vital Signs Pulse 73 11/16/23 08:38 BP 114/80 11/16/23 08:38 BMI result Body Mass Index 30.4 Const General: comfortable and no acute distress Orientation/consciousness: patient oriented x3 HEENT Other: Unremarkable Head: Yes normal to inspection Neck Neck: Yes normal visual inspection Chest Chest palpation & inspection: normal inspection of the chest Resp Auscultation: clear to auscultation bilaterally Cardio Palpation: normal PMI Heart sounds: S1 normal heart sound present, S2 abnormal (soft), no gallops, Murmur heart sound present systolic III/ and at the right sternal border and no rubs GI Palpation (GI): Soft to palpation Back/Spine/Pelvis Other: unremarkable Skin General skin exam: no rashes or lesions noted Neuro General: patient oriented x3 Extrem General: Yes normal to inspection Psych Mental Status: mental status grossly normal Assessment & Plan Assessment & Plan (1) Atherosclerotic cardiovascular disease: Code(s): I25.10 - Atherosclerotic heart disease of [place] coronary artery without angina pectoris Category: Medical Plan: Cardiac catheterization with complex multivessel disease. He is on aspirin and high-dose statins. He was recommended bypass surgery but patient states he wants to get a 2nd opinion through his own PCP. Discussed with Dr. Barney about this. Importance of getting cardiac surgery consultation ABIGAIL discussed. In fact he has already been seen by cardiac surgeon as an inpatient at [facility] but he states he would rather want to go somewhere else. (2) Persistent atrial fibrillation: Code(s): I48.19 - Other persistent atrial fibrillation Category: Medical Plan: Continue beta-blockers and anticoagulation. In the echocardiogram, severely dilated left atrium. Hence may not stay in sinus even if cardioverted. Also there is Anesthesia risk with severe aortic stenosis and cardiomyopathy. In the Holter monitor, underlying rhythm is atrial fibrillation/flutter with an average rate of 83/Min. (3) Nonrheumatic aortic (valve) stenosis: Code(s): I35.0 - Nonrheumatic aortic (valve) stenosis Category: Medical Plan: Severe aortic stenosis. Plan is AVR plus CABG when he agrees. (4) Essential hypertension: Code(s): I10 - Essential (primary) hypertension Category: Medical Plan: Stable. (5) Ascending aorta dilatation: Code(s): I77.810 - Thoracic aortic ectasia Category: Medical Plan: Ascending aortic size 4.1 cm. No clinical significance at this time but will need to be followed. Plan Discussed with who came for appointment. Importance of getting cardiac surgery intervention as soon as possible discussed. Risk of while awaiting discussed. Advised 911 in case of any symptoms like chest pain or other cardiac concerns. They understand. They still insist that they would like to get their own 2nd opinion and that they are working on it. Advised them not to wait too long. Also called and discussed with PCP. Coding Level of Care Code Est Pt Level 4 (45070) Diagnoses Atherosclerotic cardiovascular disease I25.10 Persistent atrial fibrillation I48.19 Nonrheumatic aortic (valve) stenosis I35.0 Essential hypertension I10 Ascending aorta dilatation I77.810
[2023-11-16 08:38] VITALS: BP 114/80; PULSE 73; BMI 30.4
== END 2023-11-16 08:52 | disposition home or self-care (01) ==
PROVIDERS: PCP Family Medicine; Visit Provider Internal Medicine
DX: I25.10 Atherosclerotic heart disease of native coronary artery without angina pectoris (principal); I48.19 Other persistent atrial fibrillation; I35.0 Nonrheumatic aortic (valve) stenosis; I10 Essential (primary) hypertension; I77.810 Thoracic aortic ectasia
CPT/HCPCS: 99214

== ENCOUNTER → 2023-11-16 08:28 | Outpatient (BNVA) | payer MEDICARE, MEDICAID, SELFPAY | PROVIDERS: PCP Family Medicine; Visit Provider Internal Medicine | DX: I11.0 Hypertensive heart disease with heart failure (principal); I50.9 Heart failure, unspecified; I25.10 Atherosclerotic heart disease of native coronary artery without angina pectoris; I48.19 Other persistent atrial fibrillation; I35.0 Nonrheumatic aortic (valve) stenosis; I77.810 Thoracic aortic ectasia | CPT/HCPCS: 99212 ==

== ENCOUNTER 2023-12-28 09:53 | Outpatient (AMB) | payer MEDICARE, MEDICAID, SELFPAY ==
[2023-12-28 10:08] VITALS: BP 126/76; PULSE 88; BMI 30.7
--- NOTE | 2023-12-28 10:08 | MHC.OFFVIS ---
Vital Signs 12/28/23 10:08 Height 5 ft 7 in Weight 195 lb 12.328 oz BMI 30.7 BP 126/76 Blood Pressure Location Lt brachial Position Sitting Pulse 88 Pulse Source Pulse Oximeter Intake Visit Reasons: 6wk follow up [employer] Required: No Accompanied by: Self / Same As Patient Allergies No Known Allergies [No Known Allergies*] Allergy (Verified 10/17/23 16:55) Medication List - Last Reconciled 12/28/23 by Juan Carlos Coats MD aspirin (Adult Aspirin Regimen) 81 mg PO DAILY atorvastatin 80 mg PO QPM furosemide 20 mg See Protocol PO DAILY 90 days metoprolol succinate ER 150 mg See Protocol PO DAILY 90 days rivaroxaban (Xarelto) 20 mg PO DAILY sacubitril-valsartan 24-26 mg (Entresto) 1 tab See Protocol PO BID 90 days HPI Comments Details: Dom returns for follow-up. To recall, he was admitted with atrial fibrillation rapid rate and congestive heart failure. He was diuresed. Beta-chase dose was increased. Echocardiogram during hospitalization showed evidence of LV dysfunction as well as paradoxical, low-flow, low gradient aortic stenosis. Following this, he underwent cardiac catheterization that showed significant multivessel disease. Was advised bypass surgery with aortic valve replacement as an inpatient but decided to sign himself out. He is seen to cardiac surgeon so far and he states that he does not want anything done and he would like nature to take its course. Clinically feels fine. No cardiac symptoms. [facility] Medical History (Updated 11/16/23 @ 08:45 by Juan Carlos Coats MD) Atherosclerotic cardiovascular disease Atrial fibrillation Ascending aorta dilatation Essential hypertension Nonrheumatic aortic (valve) stenosis Family History Father Heart attack Social History Household Members: Spouse Housing: House Do you presently have visiting nurse or other home services: Yes ( has more information on that ) Alcohol intake: current Alcohol intake frequency: holidays/special occasions only Alcohol type: wine Patient Tobacco Use Status: Never used Tobacco service: No Review of Systems Const Denies chills, Denies fatigue, Denies fever(s), Denies weight gain and Denies weight loss ENT Denies dizziness Card Denies chest pain, Denies leg edema, Denies lightheadedness, Denies palpitations, Denies dyspnea on exertion, Denies orthopnea and Denies other Resp Denies cough and Denies dyspnea on exertion GI Denies hematochezia and Denies change in stool character Musc Denies abnormal gait, Denies muscle weakness, Denies numbness, Denies radiating pain into limb and Denies tingling Neuro Denies abnormal gait, Denies dizziness, Denies numbness and Denies tingling Endo Denies fatigue and Denies palpitations Physical Exam Vital Signs: Last Vital Signs Pulse 88 12/28/23 10:08 BP 126/76 12/28/23 10:08 BMI result Body Mass Index 30.7 Const General: comfortable and no acute distress Orientation/consciousness: patient oriented x3 HEENT Other: Unremarkable Head: Yes normal to inspection Neck Neck: Yes normal visual inspection Chest Chest palpation & inspection: normal inspection of the chest Resp Auscultation: clear to auscultation bilaterally Cardio Palpation: normal PMI Heart sounds: S1 normal heart sound present, S2 abnormal (soft), no gallops, Murmur heart sound present systolic III/ and at the right sternal border and no rubs GI Palpation (GI): Soft to palpation Back/Spine/Pelvis Other: unremarkable Skin General skin exam: no rashes or lesions noted Neuro General: patient oriented x3 Extrem General: Yes normal to inspection Psych Mental Status: mental status grossly normal Assessment & Plan Assessment & Plan (1) Atherosclerotic cardiovascular disease: Code(s): I25.10 - Atherosclerotic heart disease of [place] coronary artery without angina pectoris Category: Medical Plan: Cardiac catheterization with complex multivessel disease. He is on aspirin and high-dose statins. He has seen 2 cardiac surgeons but has decided against any interventions. He does not want cardiac surgery at any cost. He does not want also any PCI even if feasible. He states he would like to just do medications and let 'nature take its course'. He is well aware of the risk of . (2) Persistent atrial fibrillation: Code(s): I48.19 - Other persistent atrial fibrillation Category: Medical Plan: Continue beta-blockers and anticoagulation. In the echocardiogram, severely dilated left atrium. In the Holter monitor, underlying rhythm is atrial fibrillation/flutter with an average rate of 83/Min. (3) Nonrheumatic aortic (valve) stenosis: Code(s): I35.0 - Nonrheumatic aortic (valve) stenosis Category: Medical Plan: Severe aortic stenosis. Per patient does not want anything done. (4) Essential hypertension: Code(s): I10 - Essential (primary) hypertension Category: Medical Plan: Stable. (5) Ascending aorta dilatation: Code(s): I77.810 - Thoracic aortic ectasia Category: Medical Plan: Ascending aortic size 4.1 cm. No clinical significance at this time. Orders: Orders Basic Metabolic Panel Today I50.9 - Heart failure, unspecified B Type Natriuretic Peptide Today I50.9 - Heart failure, unspecified Coding Level of Care Code Est Pt Level 5 (51649) Diagnoses Atherosclerotic cardiovascular disease I25.10 Persistent atrial fibrillation I48.19 Nonrheumatic aortic (valve) stenosis I35.0 Essential hypertension I10 Ascending aorta dilatation I77.810
== END 2023-12-28 10:40 | disposition home or self-care (01) ==
PROVIDERS: PCP Family Medicine; Visit Provider Internal Medicine
DX: I25.10 Atherosclerotic heart disease of native coronary artery without angina pectoris (principal); I48.19 Other persistent atrial fibrillation; I35.0 Nonrheumatic aortic (valve) stenosis; I77.810 Thoracic aortic ectasia; I10 Essential (primary) hypertension
CPT/HCPCS: 99215

== ENCOUNTER → 2023-12-28 09:53 | Outpatient (BNVA) | payer MEDICARE, MEDICAID, SELFPAY | PROVIDERS: PCP Family Medicine; Visit Provider Internal Medicine | DX: I25.10 Atherosclerotic heart disease of native coronary artery without angina pectoris (principal); I48.19 Other persistent atrial fibrillation; I35.0 Nonrheumatic aortic (valve) stenosis; I10 Essential (primary) hypertension; I77.810 Thoracic aortic ectasia | CPT/HCPCS: 99212 ==

== ENCOUNTER 2024-01-01 08:49 | Outpatient (REF) | payer MEDICARE, MEDICAID, SELFPAY ==
[2024-01-01 10:59] LABS: Anion Gap 11 (12-20); Blood Urea Nitrogen 18 mg/dL (9-16); Calcium 9.5 mg/dL (8.4-10.2); Carbon Dioxide 30 mmol/L (22-29); Chloride 104 mmol/L (96-108); Estimated Glomerular Filt Rate 47; Glucose Random 109 mg/dL (60-115); Potassium 4.8 mmol/L (3.3-5.1); Sodium 140 mmol/L (135-145)
[2024-01-01 11:11] LABS: B Type Natriuretic Peptide 889 pg/mL (<100)
== END 2024-01-01 08:50 | disposition home or self-care (01) ==
LOC: HO.10HDL 08:49
PROVIDERS: Visit Provider Internal Medicine
DX: I50.9 Heart failure, unspecified (principal)
CPT/HCPCS: 36415; 80048; 83880

== ENCOUNTER 2024-02-28 08:54 | Outpatient (REF) | payer MEDICARE, MEDICAID, SELFPAY ==
[2024-02-28 10:54] LABS: Estimated Average Glucose 126 mg/dL; Hemoglobin A1C 160.5686 umol/L; Total Hemoglobin (HGBA1C) 3798.9392 umol/L
[2024-02-28 11:20] LABS: Alanine Aminotransferase 24 U/L (0-40); Anion Gap 11 (12-20); Aspartate Amino Transferase 34 U/L (5-37); Blood Urea Nitrogen 17 mg/dL (9-16); Carbon Dioxide 29 mmol/L (22-29); Chloride 106 mmol/L (96-108); Cholesterol 181 mg/dL (<200); Estimated Glomerular Filt Rate 48; Glucose Fasting 100 mg/dL (60-99); HDL Cholesterol 38 mg/dL (>40); LDL Cholesterol Calculated 117 mg/dL (<100); Magnesium 2.1 mg/dL (1.6-2.6); Potassium 4.5 mmol/L (3.3-5.1); Sodium 141 mmol/L (135-145); Triglycerides 131 mg/dL (<150)
== END 2024-02-28 08:55 | disposition home or self-care (01) ==
LOC: HO.LAB 08:54
PROVIDERS: PCP Family Medicine; Visit Provider Family Medicine
DX: E78.00 Pure hypercholesterolemia, unspecified (principal); I10 Essential (primary) hypertension; E11.9 Type 2 diabetes mellitus without complications
CPT/HCPCS: 36415; 80051; 80061; 82550; 82565; 82947; 83036; 83735; 84450; 84460; 84520

== ENCOUNTER 2024-08-06 05:58 | Outpatient (REF) | payer MEDICARE, MEDICAID, SELFPAY ==
[2024-08-06 07:23] LABS: Alanine Aminotransferase 16 U/L (0-40); Anion Gap 14 (12-20); Aspartate Amino Transferase 29 U/L (5-37); Blood Urea Nitrogen 17 mg/dL (9-16); Carbon Dioxide 24 mmol/L (22-29); Chloride 108 mmol/L (96-108); Cholesterol 193 mg/dL (<200); Estimated Glomerular Filt Rate 52; HDL Cholesterol 37 mg/dL (>40); LDL Cholesterol Calculated 124 mg/dL (<100); Magnesium 2.2 mg/dL (1.6-2.6); Potassium 4.1 mmol/L (3.3-5.1); Sodium 142 mmol/L (135-145); Triglycerides 164 mg/dL (<150)
== END 2024-08-06 05:59 | disposition home or self-care (01) ==
LOC: HO.LAB 05:58
PROVIDERS: PCP Family Medicine; Visit Provider Family Medicine
DX: I10 Essential (primary) hypertension (principal); E78.00 Pure hypercholesterolemia, unspecified; Z79.899 Other long term (current) drug therapy
CPT/HCPCS: 36415; 80051; 80061; 82550; 82565; 83735; 84450; 84460; 84520

== ENCOUNTER 2024-10-11 09:18 | Outpatient (AMB) | payer MEDICARE, MEDICAID, SELFPAY ==
--- NOTE | 2024-10-11 09:18 | A.OFFPC_ITS ---
Vital Signs 10/11/24 09:27 10/11/24 09:36 Height 5 ft 7 in Weight 94.347 kg BMI 32.6 BP 145/110 H 136/86 Blood Pressure Location Lt brachial Position Sitting Pulse 97 Pulse Source Pulse Oximeter Temp 96.6 F L Temp Source Temporal Artery Scan Pulse Oximetry (%) 95 Oxygen Delivery Method Room Air Intake Visit Reasons: routine - Barney pt. [employer] Required: No Accompanied by: Self / Same As Patient Allergies No Known Allergies (No Known Allergies*) Allergy (Verified 10/11/24 09:25) HPI HPI Comments History of Present Illness Details 79-year-old male with history of hyperte nsion, nonrheumatic aortic stenosis, ascending aorta dilatation, hypertension, atrial fibrillation, CAD presents to the office today for management of chronic conditions and to establish care. Persistent atrial fibrillation-following with Dr. Coats. Compliant with Xarelto for anticoagulation. On metoprolol for rate control. Asymptomatic Hypertension-compliant with Toprol 150 mg ER, Entresto 24-26 mg CAD-cardiac catheterization revealing complex multi vessel disease. Has seen 2 cardiac surgeon but has decided against any interventions including PCI. Continues on statin and beta-chase. CHF- weighs once or twice weekly. No edema, cobb even on stairs, orthopnea Concerns: None ROS: General: No fevers, malaise, unintentional weight loss Cardiovascular: No chest pain, palpitations, or leg edema Respiratory: No shortness of breath, wheezing, cough MSK: No myalgia, back pain Neuro: No headaches, weakness, paresthesias Skin: No rashes or lesions EXAM: Constitutional - Awake and Alert, No apparent distress Eyes - PERRL Cardiovascular - S1S2, irregularly irregular, rate normal, No edema Respiratory - Normal lung expansion, Normal respiratory effort, No respiratory distress, CTA bilaterally Extremities - no calf tenderness bilaterally, no swelling Skin - Warm/Dry Neurological - Alert & oriented x3 Psychological - Appropriate affect [facility] Medical History (Updated 10/11/24 @ 09:35 by MIKE Cain) Heart failure with reduced ejection fraction Atherosclerotic cardiovascular disease Atrial fibrillation Ascending aorta dilatation Essential hypertension Nonrheumatic aortic (valve) stenosis Family History Father Heart attack Social History Household Members: Spouse Housing: House Do you presently have visiting nurse or other home services: Yes ( has more information on that ) Alcohol intake: current Alcohol intake frequency: holidays/special occasions only Alcohol type: wine Patient Tobacco Use Status: Never used Tobacco service: No Questionnaire Thrive Questionnaire Date Thrive assessed: 10/18/23 Physical exam (Primary Care) Vital Signs: Last Vital Signs Temp 96.6 F L 10/11/24 09:27 Pulse 97 10/11/24 09:27 BP 136/86 10/11/24 09:36 Pulse Ox 95 10/11/24 09:27 Oxygen Delivery Method Room Air 10/11/24 09:27 BMI result Body Mass Index 32.6 Tobacco/Smoking Status: Tobacco use Status Patient Tobacco Use Status Never used Tobacco 10/11/24 09:21 Thrive Assessment: Date of Thrive Assessment Date Thrive assessed 10/18/23 10/11/24 09:21 Coding Level of Care Code New Pt Level 4 (25163) Complex EM visit Add On G2211 Diagnoses Heart failure with reduced ejection fraction I50.20 Nonrheumatic aortic (valve) stenosis I35.0 Atherosclerotic cardiovascular disease I25.10 Persistent atrial fibrillation I48.19 Ascending aorta dilatation I77.810 Assessment & Plan Assessment & Plan (1) Heart failure with reduced ejection fraction: Code(s): I50.20 - Unspecified systolic (congestive) heart failure Category: Medical Plan: Clinically euvolemic. Continue Lasix and Entresto. Reviewed last echocardiogram with EF 35%. Continue following with Cardiology. Recommend daily weights and low-sodium diet. Discussed fluid restrictions (2) Nonrheumatic aortic (valve) stenosis: Code(s): I35.0 - Nonrheumatic aortic (valve) stenosis Category: Medical Plan: Stable. (3) Atherosclerotic cardiovascular disease: Code(s): I25.10 - Atherosclerotic heart disease of [place] coronary artery without angina pectoris Category: Medical Plan: Asymptomatic. He continues to state he is not interested in any intervention including PCI. Continue atorvastatin 80 mg, metoprolol 75 mg ER, aspirin. Counseled on diet low in saturated fat and highly processed foods. Last LDL 124 (4) Persistent atrial fibrillation: Code(s): I48.19 - Other persistent atrial fibrillation Category: Medical Plan: Rate controlled. Continue Xarelto for anticoagulation as well as metoprolol for rate control. Follow-up with cardiology-advised to schedule appointment (5) Ascending aorta dilatation: Code(s): I77.810 - Thoracic aortic ectasia Category: Medical Plan: Stable. Keep blood pressure controlled. On repeat, blood pressure 136/86. Continue Entresto, metoprolol Plan Follow-up in 4 months. Labs to be completed prior to next visit. Reviewed last labs from 07/2024 patient Orders: Orders Complete Blood Count Auto Diff 4 Months I25.10 - Atherosclerotic heart disease of [place] coronary artery without angina pectoris, I48.19 - Other persistent atrial fibrillation, I48.91 - Unspecified atrial fibrillation Lipid Panel 4 Months I25.10 - Atherosclerotic heart disease of [place] coronary artery without angina pectoris, I48.19 - Other persistent atrial fibrillation, I48.91 - Unspecified atrial fibrillation Liver Panel 4 Months I25.10 - Atherosclerotic heart disease of [place] coronary artery without angina pectoris, I48.19 - Other persistent atrial fibrillation, I48.91 - Unspecified atrial fibrillation Basic Metabolic Panel 4 Months I25.10 - Atherosclerotic heart disease of [place] coronary artery without angina pectoris, I48.19 - Other persistent atrial fibrillation, I48.91 - Unspecified atrial fibrillation Patient Instructions: Call cardiology to schedule an appt
[2024-10-11 09:27] VITALS: BP 145/110; PULSE 97; TEMP 35.9; O2SAT 95; BMI 32.6
[2024-10-11 09:36] VITALS: BP 136/86
== END 2024-10-11 09:37 | disposition home or self-care (01) ==
LOC: HO.HMCHD 09:18
PROVIDERS: PCP Family Medicine; Visit Provider Physician Assistant
DX: I50.20 Unspecified systolic (congestive) heart failure (principal); I48.19 Other persistent atrial fibrillation; I35.0 Nonrheumatic aortic (valve) stenosis; I25.10 Atherosclerotic heart disease of native coronary artery without angina pectoris; I77.810 Thoracic aortic ectasia

== ENCOUNTER → 2024-10-11 09:18 | Outpatient (BNVA) | payer MEDICARE, MEDICAID, SELFPAY | PROVIDERS: PCP Family Medicine; Visit Provider Physician Assistant | DX: I50.20 Unspecified systolic (congestive) heart failure (principal); I35.0 Nonrheumatic aortic (valve) stenosis; I25.10 Atherosclerotic heart disease of native coronary artery without angina pectoris; I48.19 Other persistent atrial fibrillation; I77.810 Thoracic aortic ectasia; Z79.01 Long term (current) use of anticoagulants; Z79.899 Other long term (current) drug therapy | CPT/HCPCS: 99212 ==

== ENCOUNTER 2024-11-28 10:57 | Outpatient (AMB) | payer MEDICARE, MEDICAID, SELFPAY ==
--- NOTE | 2024-11-28 12:34 | MHC.OFFVIS ---
Vital Signs 11/28/24 12:35 Height 5 ft 7 in Weight 202 lb 13.204 oz BMI 31.8 BP 122/68 Blood Pressure Location Lt brachial Position Sitting Pulse 80 Pulse Source Monitor Intake Visit Reasons: 6 month f/up Allergies No Known Allergies (No Known Allergies*) Allergy (Verified 10/11/24 09:25) Medication List - Last Reconciled 11/28/24 by Juan Carlos Coats MD aspirin (Adult Aspirin Regimen) 81 mg PO DAILY atorvastatin 80 mg PO QPM ezetimibe 10 mg PO DAILY furosemide 20 mg See Protocol PO DAILY 90 days metoprolol succinate ER 100 mg See Protocol PO DAILY rivaroxaban (Xarelto) 20 mg PO DAILY sacubitril-valsartan 24-26 mg (Entresto) 1 tab PO BID HPI Comments Details: Dom returns for follow-up regarding coronary artery disease, congestive heart failure, atrial fibrillation as well as aortic stenosis. Overall, he states he feels well. He does not really have any concerns. No cardiac symptoms. [facility] Medical History (Updated 11/28/24 @ 13:20 by Juan Carlos Coats MD) Heart failure with reduced ejection fraction Atherosclerotic cardiovascular disease Atrial fibrillation Ascending aorta dilatation Essential hypertension Nonrheumatic aortic (valve) stenosis Family History Father Heart attack Social History Household Members: Spouse Housing: House Do you presently have visiting nurse or other home services: Yes ( has more information on that ) Alcohol intake: current Alcohol intake frequency: holidays/special occasions only Alcohol type: wine Patient Tobacco Use Status: Never used Tobacco service: No Review of Systems Const Denies weakness ENT Denies dizziness Card Denies chest pain, Denies chest pain with activity, Denies syncope, Denies rapid heart rate, Denies pedal edema, Denies edema, Denies leg edema, Denies lightheadedness, Denies palpitations, Denies dyspnea, Denies dyspnea on exertion and Denies orthopnea Resp Denies cough, Denies dyspnea and Denies dyspnea on exertion GI Denies hematochezia and Denies change in stool character Musc Denies abnormal gait, Denies muscle cramps, Denies muscle weakness, Denies numbness, Denies radiating pain into limb and Denies tingling Neuro Denies abnormal gait, Denies dizziness, Denies syncope, Denies numbness, Denies tingling and Denies weakness Endo Denies palpitations Physical Exam Vital Signs: Last Vital Signs Pulse 80 11/28/24 12:35 BP 122/68 11/28/24 12:35 BMI result Body Mass Index 31.8 Const General: comfortable and no acute distress Orientation/consciousness: patient oriented x3 HEENT Other: Unremarkable Head: Yes normal to inspection Neck Neck: Yes normal visual inspection Chest Chest palpation & inspection: normal inspection of the chest Resp Auscultation: clear to auscultation bilaterally Cardio Palpation: normal PMI Heart sounds: S1 normal heart sound present, S2 abnormal (soft), no gallops, Murmur heart sound present systolic III/ and at the right sternal border and no rubs GI Palpation (GI): Soft to palpation Back/Spine/Pelvis Other: unremarkable Skin General skin exam: no rashes or lesions noted Neuro General: patient oriented x3 Extrem General: Yes normal to inspection Psych Mental Status: mental status grossly normal Office Procedures EKG Details: EKG with atrial fibrillation at 80/Min; premature ventricular versus aberrantly conducted complex; lateral T inversions. [id number], Complete Assessment & Plan Assessment & Plan (1) Atherosclerotic cardiovascular disease: Code(s): I25.10 - Atherosclerotic heart disease of [place] coronary artery without angina pectoris Category: Medical Plan: Cardiac catheterization with complex multivessel disease. He is on aspirin and high-dose statins. He has seen 2 cardiac surgeons but has decided against any interventions. He does not want cardiac surgery at any cost. He does not want also any PCI even if feasible. He states he would like to just do medications and let 'nature take its course'. He is well aware of the risk of . (2) Persistent atrial fibrillation: Code(s): I48.19 - Other persistent atrial fibrillation Category: Medical Plan: Continue beta-blockers and anticoagulation. In the echocardiogram, severely dilated left atrium. In the Holter monitor, underlying rhythm is atrial fibrillation/flutter with an average rate of 83/Min. (3) Nonrheumatic aortic (valve) stenosis: Code(s): I35.0 - Nonrheumatic aortic (valve) stenosis Category: Medical Plan: Severe aortic stenosis. Per patient does not want anything done. We discussed about this today and he does not want any follow-up or TAVR extra. (4) Chronic combined systolic and diastolic CHF (congestive heart failure): Code(s): I50.42 - Chronic combined systolic (congestive) and diastolic (congestive) heart failure Category: Medical Plan: Stable. On metoprolol, Entresto, diuretics. (5) Essential hypertension: Code(s): I10 - Essential (primary) hypertension Category: Medical Plan: Stable. (6) Ascending aorta dilatation: Code(s): I77.810 - Thoracic aortic ectasia Category: Medical Plan: Ascending aortic size 4.1 cm. No clinical significance at this time. Plan Discussion Notes During the consultation, I discussed the patient's atrial fibrillation and aortic valve disorder. The patient expressed a clear preference against surgical intervention for the valve disorder, understanding the procedure and its implications. I advised him to continue his current medication regimen and to maintain his active lifestyle. Patient was informed and verbally consented to the use of an ambient scribe for clinic note documentation during this visit. Coding Level of Care Code Est Pt Level 4 (15355) Complex EM visit Add On G2211 Diagnoses Atherosclerotic cardiovascular disease I25.10 Persistent atrial fibrillation I48.19 Nonrheumatic aortic (valve) stenosis I35.0 Chronic combined systolic and diastolic CHF (congestive heart failure) I50.42 Essential hypertension I10 Ascending aorta dilatation I77.810 CPT Codes EKG - CPT: [id number], Complete ([id number])
[2024-11-28 12:35] VITALS: BP 122/68; PULSE 80; BMI 31.8
== END 2024-11-28 12:56 | disposition home or self-care (01) ==
LOC: HO.HCS 10:58
PROVIDERS: PCP Family Medicine; Visit Provider Internal Medicine
DX: I25.10 Atherosclerotic heart disease of native coronary artery without angina pectoris (principal); I48.19 Other persistent atrial fibrillation; I35.0 Nonrheumatic aortic (valve) stenosis; I50.42 Chronic combined systolic (congestive) and diastolic (congestive) heart failure; I10 Essential (primary) hypertension; I77.810 Thoracic aortic ectasia
CPT/HCPCS: 93010; 99214; G2211

== ENCOUNTER → 2024-11-28 10:57 | Outpatient (BNVA) | payer MEDICARE, MEDICAID, SELFPAY | PROVIDERS: PCP Family Medicine; Visit Provider Internal Medicine | DX: I25.10 Atherosclerotic heart disease of native coronary artery without angina pectoris (principal); I48.19 Other persistent atrial fibrillation; I11.0 Hypertensive heart disease with heart failure; I50.42 Chronic combined systolic (congestive) and diastolic (congestive) heart failure; I77.810 Thoracic aortic ectasia | CPT/HCPCS: 93005; 99212 ==

== ENCOUNTER 2024-12-17 13:30 | Outpatient (AMB) | payer MEDICARE, MEDICAID, SELFPAY ==
--- NOTE | 2024-12-17 14:04 | A.OFFPC_ITS ---
Vital Signs 12/17/24 14:05 Height 5 ft 7 in Weight 91.626 kg BMI 31.6 BP 134/74 Respiration 16 Pulse 85 Pulse Source Pulse Oximeter Temp 97.1 F Temp Source Temporal Artery Scan Pulse Oximetry (%) 97 Oxygen Delivery Method Room Air Intake Visit Reasons: follow up Hat Block Bench Hand Required: No Accompanied by: Self / Same As Patient Allergies No Known Allergies (No Known Allergies*) Allergy (Verified 12/17/24 14:04) Medication List - Last Reconciled 12/17/24 by MIKE Cain aspirin (Adult Aspirin Regimen) 81 mg PO DAILY atorvastatin 80 mg PO QPM ezetimibe 10 mg PO DAILY furosemide 20 mg See Protocol PO DAILY 90 days metoprolol succinate ER 100 mg See Protocol PO DAILY rivaroxaban (Xarelto) 20 mg PO DAILY sacubitril-valsartan 24-26 mg (Entresto) 1 tab PO BID HPI HPI Comments History of Present Illness Details 79-year-old male with history of hyperte nsion, nonrheumatic aortic stenosis, ascending aorta dilatation, hypertension, atrial fibrillation, CAD presents to the office today for management of chronic conditions and to establish care. Persistent atrial fibrillation-following with Dr. Coats. Compliant with Xarelto for anticoagulation. On metoprolol for rate control. Asymptomatic Severe -adamant that he does not want valve replacement surgery. No dyspnea, near-syncope Hypertension-compliant with Toprol 150 mg ER, Entresto 24-26 mg CAD-cardiac catheterization revealing complex multi vessel disease. Has seen 2 cardiac surgeon but has decided against any interventions including PCI. Continues on statin and beta-chase. CHF- weighs once or twice weekly. No edema, cobb even on stairs, orthopnea. On Lasix 20 mg as well as Entresto Concerns: None ROS: General: No fevers, malaise, unintentional weight loss Cardiovascular: No chest pain, palpitations, or leg edema Respiratory: No shortness of breath, wheezing, cough MSK: No myalgia, back pain Neuro: No headaches, weakness, paresthesias Skin: No rashes or lesions EXAM: Constitutional - Awake and Alert, No apparent distress Eyes - PERRL Cardiovascular - S1S2, irregularly irregular, rate normal, No edema Respiratory - Normal lung expansion, Normal respiratory effort, No respiratory distress, CTA bilaterally Extremities - no calf tenderness bilaterally, no swelling Skin - Warm/Dry Neurological - Alert & oriented x3 Psychological - Appropriate affect PFSH Medical History Heart failure with reduced ejection fraction Atherosclerotic cardiovascular disease Atrial fibrillation Ascending aorta dilatation Essential hypertension Nonrheumatic aortic (valve) stenosis Family History Father Heart attack Social History Household Members: Spouse Housing: House Do you presently have visiting nurse or other home services: Yes ( has more information on that ) Alcohol intake: current Alcohol intake frequency: holidays/special occasions only Alcohol type: wine Patient Tobacco Use Status: Never used Tobacco service: No Questionnaire Thrive Questionnaire Date Thrive assessed: 10/18/23 Physical exam (Primary Care) Vital Signs: Last Vital Signs Temp 97.1 F 12/17/24 14:05 Pulse 85 12/17/24 14:05 Resp 16 12/17/24 14:05 BP 134/74 12/17/24 14:05 Pulse Ox 97 12/17/24 14:05 Oxygen Delivery Method Room Air 12/17/24 14:05 BMI result Body Mass Index 31.6 Tobacco/Smoking Status: Tobacco use Status Patient Tobacco Use Status Never used Tobacco 12/17/24 14:09 Thrive Assessment: Date of Thrive Assessment Date Thrive assessed 10/18/23 12/17/24 14:09 Coding Level of Care Code Est Pt Level 4 (42564) Complex EM visit Add On G2211 Diagnoses Heart failure with reduced ejection fraction I50.20 Nonrheumatic aortic (valve) stenosis I35.0 Atherosclerotic cardiovascular disease I25.10 Persistent atrial fibrillation I48.19 Ascending aorta dilatation I77.810 Assessment & Plan Assessment & Plan (1) Heart failure with reduced ejection fraction: Code(s): I50.20 - Unspecified systolic (congestive) heart failure Category: Medical Plan: Clinically euvolemic. Continue Lasix and Entresto. Reviewed last echocardiogram with EF 35%. Continue following with Cardiology. Recommend daily weights and low-sodium diet. Discussed fluid restrictions (2) Nonrheumatic aortic (valve) stenosis: Code(s): I35.0 - Nonrheumatic aortic (valve) stenosis Category: Medical Plan: Asymptomatic. Adamant that he does not desire valve replacement surgery. Continue following with Cardiology (3) Atherosclerotic cardiovascular disease: Code(s): I25.10 - Atherosclerotic heart disease of [place] coronary artery without angina pectoris Category: Medical Plan: Asymptomatic. He continues to state he is not interested in any intervention including PCI. Continue atorvastatin 80 mg, metoprolol 75 mg ER, aspirin. Counseled on diet low in saturated fat and highly processed foods. Last LDL 124 (4) Persistent atrial fibrillation: Code(s): I48.19 - Other persistent atrial fibrillation Category: Medical Plan: Rate controlled. Continue Xarelto for anticoagulation as well as metoprolol for rate control. Follow-up with cardiology-advised to schedule appointment (5) Ascending aorta dilatation: Code(s): I77.810 - Thoracic aortic ectasia Category: Medical Plan: Stable. Keep blood pressure controlled. On repeat, blood pressure 136/86. Continue Entresto, metoprolol Plan Follow-up in 4 months. Labs to be completed today Orders: Orders Complete Blood Count Auto Diff Today I25.10 - Atherosclerotic heart disease of [place] coronary artery without angina pectoris, I35.0 - Nonrheumatic aortic (valve) stenosis, I48.19 - Other persistent atrial fibrillation, I50.20 - Unspecified systolic (congestive) heart failure Liver Panel Today I25.10 - Atherosclerotic heart disease of [place] coronary artery without angina pectoris, I35.0 - Nonrheumatic aortic (valve) stenosis, I48.19 - Other persistent atrial fibrillation, I50.20 - Unspecified systolic (congestive) heart failure Basic Metabolic Panel Today I25.10 - Atherosclerotic heart disease of [place] coronary artery without angina pectoris, I35.0 - Nonrheumatic aortic (valve) stenosis, I48.19 - Other persistent atrial fibrillation, I50.20 - Unspecified systolic (congestive) heart failure Lipid Panel Today I25.10 - Atherosclerotic heart disease of [place] coronary artery without angina pectoris, I35.0 - Nonrheumatic aortic (valve) stenosis, I48.19 - Other persistent atrial fibrillation, I50.20 - Unspecified systolic (congestive) heart failure
[2024-12-17 14:05] VITALS: BP 134/74; PULSE 85; RESP 16; TEMP 36.2; O2SAT 97; BMI 31.6
== END 2024-12-17 14:39 | disposition home or self-care (01) ==
LOC: HO.HMCHD 13:30
PROVIDERS: PCP Physician Assistant; Visit Provider Physician Assistant
DX: I50.20 Unspecified systolic (congestive) heart failure (principal); I35.0 Nonrheumatic aortic (valve) stenosis; I25.10 Atherosclerotic heart disease of native coronary artery without angina pectoris; I48.19 Other persistent atrial fibrillation; I77.810 Thoracic aortic ectasia

== ENCOUNTER 2024-12-17 13:30 | Outpatient (REF) | payer MEDICARE, MEDICAID, SELFPAY | END 2024-12-17 13:31 | disposition home or self-care (01) | LOC: HO.LAB 13:30 | PROVIDERS: PCP Family Medicine; Visit Provider Physician Assistant | DX: I50.20 Unspecified systolic (congestive) heart failure (principal); I35.0 Nonrheumatic aortic (valve) stenosis; I25.10 Atherosclerotic heart disease of native coronary artery without angina pectoris; I77.810 Thoracic aortic ectasia; Z79.01 Long term (current) use of anticoagulants; Z79.82 Long term (current) use of aspirin; Z79.899 Other long term (current) drug therapy | CPT/HCPCS: 99212 ==

== ENCOUNTER 2024-12-18 08:55 | Outpatient (REF) | payer MEDICARE, MEDICAID, SELFPAY ==
[2024-12-18 09:08] LABS: MANUAL DIFF FLAG NO
[2024-12-18 09:43] LABS: Hematocrit 41.9 % (42.0-52.0); Hemoglobin 13.8 g/dl (14.0-18.0); Imm Gran Abs Auto 0.05 X10*3/uL (0.00-0.03); Imm Gran Pct Auto 0.6 % (0.0-0.4); Lymphocytes Absolute Auto 1.8 X10*3/uL (1.2-4.9); Mean Corpuscular HGB Conc 32.9 g/dl (31.0-36.0); Mean Corpuscular Hemoglobin 29.9 pg (27.0-33.0); Mean Corpuscular Volume 90.7 fL (80.0-98.0); NRBC Abs Auto 0.000 X10*3/uL (0.0-0.012); NRBC Pct Auto 0.0 /100WBC (0.0-0.2); Platelet Count 295 X10*3/uL (160-400); Red Blood Count 4.62 X10*6/uL (4.60-5.80); White Blood Count 8.4 X10*3/uL (4.8-10.8)
[2024-12-18 10:31] LABS: Alanine Aminotransferase 30 U/L (0-40); Albumin Level 4.3 g/dL (3.5-5.0); Alkaline Phosphatase 133 U/L (39-117); Anion Gap 11 (12-20); Aspartate Amino Transferase 34 U/L (5-37); Blood Urea Nitrogen 22 mg/dL (9-16); Calcium 9.6 mg/dL (8.4-10.2); Carbon Dioxide 30 mmol/L (22-29); Chloride 105 mmol/L (96-108); Cholesterol 131 mg/dL (<200); Estimated Glomerular Filt Rate 49; HDL Cholesterol 37 mg/dL (>40); Potassium 5.2 mmol/L (3.3-5.1); Sodium 141 mmol/L (135-145); Total Protein 7.6 g/dL (6.5-8.0); Triglycerides 85 mg/dL (<150)
== END 2024-12-18 08:56 | disposition home or self-care (01) ==
LOC: HO.LAB 08:55
PROVIDERS: PCP Physician Assistant; Visit Provider Physician Assistant
DX: I50.20 Unspecified systolic (congestive) heart failure (principal); I35.0 Nonrheumatic aortic (valve) stenosis; I25.10 Atherosclerotic heart disease of native coronary artery without angina pectoris; I48.19 Other persistent atrial fibrillation
CPT/HCPCS: 36415; 80048; 80061; 80076; 85025